=== PATIENT | male | born 1945 | race Caucasian/White ===

== ENCOUNTER 2024-12-19 08:39 | Outpatient (CLI) | payer MEDICARE, SELFPAY ==
--- NOTE | ~2024-12-19 | CT_ITS ---
EXAMINATION: CT LE LT wo con DATE: 12/19/2024 09:06 INDICATION: Left calf muscle strain with one month of pain and swelling TECHNIQUE: High resolution computed tomography (CT) of the left lower leg was performed without intra venous contrast. Additional sagittal and coronal reconstructions were performed. Automated exposure c ontrol and iterative reconstruction technique were employed. The dose-length product was 864.84 mGy-c m. COMPARISON: None FINDINGS: Heterogeneous attenuation of a lenticular lesion most likely an intramuscular hematoma related to mus nathan strain along the aponeurosis along the deep margin of the medial head of the gastrocnemius muscle which measures 8.5 cm craniocaudally and 3.5 x 2.1 cm maximal transaxial dimensions. 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 Tiny central subchondral osteophytes along the ante rior weightbearing medial lateral femoral condyle consistent with overlying high-grade chondromalacia . There are extensive vascular calcifications along the arteries of the right lower leg. IMPRESSION: 1. 8.5 x 3.5 x 2.1 cm intramuscular hematoma along the aponeurosis at the deep margin of the medial h ead of the gastrocnemius muscle likely related to associated moderate grade muscle strain/partial tea r. Reviewed, dictated and finalized at location A. IMPRESSION: 1. 8.5 x 3.5 x 2.1 cm intramuscular hematoma along the aponeurosis at the deep margin of the medial head of the gastrocnemius muscle likely related to associa kostas moderate grade muscle strain/partial tear.
--- OUTSIDE RECORDS SUMMARY | 2024-12-19 09:06 | XMS_ITS | Continuity of Care Document ---
Author Organization [facility] [facility] [place] [address] [facility] [address] [place] [address] Phone Care Team Providers Care Juice Tester Name Role Phone Elias Morales MD, FACS Unavailable Unavailab le Allergies, Adverse Reactions, Alerts Substance Reaction Status Criticality No Known Allergies Active No Inform ation Medications Medication Instructions Dosage Effective Dates (start - stop) Status Comments dorzolamide 22.3 mg-timolol 6.8 mg/mL eye drops instill 1 drop by ophthalmic route 2 times every day into both eye(s) - Active fluorometholone 0.1 % eye drops,suspension instill 1 drop by ophthalmic route every day into both eyes 1 drop - Active metformin ER 500 mg tablet,extended release 24 hr take 1 tablet (500MG) by ORAL route every day with evening meal with the evening meal 500 MG - Active Fish Oil 1,000 mg (120 mg-180 mg) capsule take 1 by oral route every day 1 - Active vitamin B12 1,000 mcg-folic acid 400 mcg sublingual lozenge - Active Vitamin C 100 mg tablet take 1 by oral route every day 1 - Active atorvastatin 20 mg tablet take 1 tablet by oral route every day 20 MG - Active omeprazole 40 mg capsule,delayed release take 1 capsule by oral route every day before a meal 40 MG - Active Toprol XL 100 mg tablet,extended release take 1 tablet by oral route every day 100 MG - Active Lantus U-100 Insulin 100 unit/mL subcutaneous solution inject by subcutaneous route as per insulin protocol 0.00 - Active Entresto 49 mg-51 mg tablet take 1 tablet by oral route 2 times every day 1.00 tablet - Active Eliquis 5 mg tablet take 1 tablet by oral route 2 times every day 5 MG - Active hydrochlorothiazide 25 mg tablet take 1 tablet by oral route every day 25 MG - Active gabapentin 100 mg capsule take 3 capsule by oral route every day at bedtime 300 MG - Active tamsulosin 0.4 mg capsule take one table t daily - Active Klor-Con 10 mEq tablet,extended release take 2 tablet by oral route 2 times every day with food 20 MEQ - Active Procedures Procedure Date SCODI, Posterior Segment Visual Field Examination(s) Eye Exam & Treatment Corneal Topography Fundus Photography W/ Report Office/outpatient Visit, Est Contact Lens Check Office/outpatient Visit, Est Contact Lens Check Contact Lens Check Talita Dropper Creve Couer Talita Dropper Creve Couer Talita Dropper Creve Couer Post-op Follow-up Visit Post-op Follow-up Visit Injection Treatment Of Eye Post-op Follow-up Visit Drainage Of Eye Post-op Follow-up Visit Keratoplasty(Corneal Trans)Endothelial J Corneal Topography Corneal Pachymetry Office/outpatient Visit, Est SCODI, Posterior Segment No Charge Refraction No Charge Optomap Fundus Photos 023 Corneal Pachymetry No Charge GDX Retina Eye Exam & Treatment Visual Field Examination(s) Fundus Photography W/ Report Office/outpatient Visit, Est SCODI, Anterior Segment No Charge Contact Lens Check Contact Lens Check Contact Lens Check SCODI, Anterior Segment No Charge SCODI, Anterior Segment No Charge SCODI, Anterior Segment No Charge Contact Lens Fitting, Medical Superv Feb Contact Lens, Scleral, Gas Permeable Feb Eye Exam & Treatment SCODI, Posterior Segment Fundus Photography W/ Report Visual Field Examination(s) Office/outpatient Visit, Est SCODI, Posterior Segment No Charge Optomap Fundus Photos 021 Eye Exam & Treatment Visual Field Examination(s) Fundus Photography W/ Report Office/outpatient Visit, Est SCODI, Posterior Segment Eye Exam & Treatment Visual Field Examination(s) Office/outpatient Visit, Est No Charge Optomap Fundus Photos 020 SCODI, Posterior Segment Eye Exam & Treatment Office/outpatient Visit, Est Visual Field Examination(s) Fundus Photography W/ Report Office/outpatient Visit, Est SCODI, Posterior Segment Eye Exam & Treatment Visual Field Examination(s) Office/outpatient Visit, Est SCODI, Posterior Segment Eye Exam & Treatment Eye Exam & Treatment Optic Nerve Head Eval IPO Reduced 15% Dilated Retinal Exam W Interpretation No Evidence Of Retinopathy In Prior Year Office/outpatient Visit, Est Fundus Photography W/ Report Office/outpatient Visit, Est Fundus Photography W/ Report Optic Nerve Head Eval IOP Red Less Than 15% W Plan Of Care Jan Dilated Retinal Exam W Interpretation Ju No Evidence Of Retinopathy In Prior Year Office/outpatient Visit, Est Fundus Photography W/ Report Optic Nerve Head Eval IOP Red Less Than 15% W Plan Of Care Jul IOP Red Less That 15% W Plan Of Care Jul Dilated Retinal Exam W Interpretation Angus No Evidence Of Retinopathy In Prior Year Eye Exam & Treatment Fundus Photography W/ Report Optic Nerve Head Eval IPO Reduced 15% Office/outpatient Visit, Est Office/outpatient Visit, Est Optic Nerve Head Eval IPO Reduced 15% Office/outpatient Visit, Est Certified EMR Contact Lens Check Contact Lens, Gas Permeable, Spherical, Per Lens Miscellaneous Vision Service - Supplies Contact Lens Check Contact Lens Fitt, Med Superv, Level 6 A pr--2011 Office/outpatient Visit, Est Post-op Follow-up Visit Office/outpatient Visit, Est After Cataract Laser Surgery Certified EMR Eye Exam & Treatment Optic Nerve Head Eval IPO Reduced 15% Dilated Retinal Exam W Interpretation No Evidence Of Retinopathy In Prior Year Post-op Follow-up Visit After Cataract Laser Surgery Eye Exam & Treatment Optic Nerve Head Eval IPO Reduced 15% Dilated Retinal Exam W Interpretation Ju No Evidence Of Retinopathy In Prior Year Optic Nerve Topography Optic Nerve Topography Eye Exam & Treatment Advance Directives Directive Yes / No Effective Date File Name Other Directive No N/A N/A WARNING:The information contained in this section is historical and is provided for information only and does not constitute a legal document or any assurance that the information is still accurate. Please verify the information with the hammond of the legal document before using it for clinical purposes. Encounters Encounter Description Practice Location Reason(s) For Visit Diagnoses Date Provider Providers Copied on Encounter [facility], [id number], [place], [place], [address], tel:[phone] SEC [place] Professional 6 month Cornea and Glaucoma followup (chief complaint) Corneal transplant statusPresenc e of intraocular lensPrimary open-angle glaucoma, bilateral, moderate stage 5 Andrew Griffin. [facility] [address], [address], [place], [place], [address], [place]. tel:[phone] Referring Provider: Elias Remy, [id number], [place], [address]. tel:[phone] Office/outpa tient Visit, Est [facility], [address], [place], [place], [address], tel:[phone] SEC [place] JAMIN Professional 6 month dilated exam (chief complaint) Corneal transplant statusPresenc e of intraocular lens 4 Andrew Griffin. [facility] [address], [address], [place], [place], [address], [place]. tel:[phone] Referring Provider: Elias Remy, [id number], [place], [address]. tel:[phone] [facility], [email or web address], [place], [place], [address], tel:[phone] SEC [place] JAMIN Professional contact lens check (chief complaint) Corneal transplant status 4 Rika Archer. [facility] [address], [address], [place], [place], [address], [place]. tel:[phone] Referring Provider: Elias Remy, [id number], [place], [address]. tel:[phone] Office/outpa tient Visit, Est [facility], [address], [place], [place], [address], tel: SEC [place] Professional glaucoma, pressure check (chief complaint) Corneal transplant statusPrimary open-angle glaucoma, bilateral, moderate stage Nov-0 7-202 3 Andrew Griffin. [facility] [address], [address], [place], [place], [address], [place]. tel:[phone] Referring Provider: Elias Remy, [facility] [address], [place], [address]. tel:[phone] [facility], [facility] [employer] [address], [place], [place], [address], tel:[phone] SEC [place] Professional CL Check (chief complaint) Corneal transplant status Oct-0 4202 3 Rika OD Suzi. [facility] [address], [address], [place], [place], [address], [place]. tel:[phone] Referring Provider: Elias Remy, [facility] [address], [place], [address]. tel:[phone] [facility], [address], [place], [place], [address], [place] tel: [place] Professional CL Check (chief complaint) Corneal transplant status Sep-0 6-202 3 Rika OD Suzi. [facility] [address], [address], [place], [place], [address], [place]. tel:[phone] Referring Provider: Elias Remy, [facility] [address], [place], [address]. tel:[phone] [employer] [facility], [facility] [employer] [address], [place], [place], [address], [place] tel: SEC [place] 2 week post op (chief complaint) Post op visit 3 Andrew Griffin. [address], [address], [place], [place], [address], [place]. tel:[phone] Referring Provider: Elias Remy, [id number], [place], [address]. tel:[phone] [employer], [email or web address], [place], [place], [address], tel: SEC [place] 2 day followup (chief complaint) Post op visit 3 Andrew Griffin. [id number], [place], [place], [address], [place]. tel:[phone] Referring Provider: Elias Remy, [id number], [place], [address]. tel:[phone] [employer], [email or web address], [place], [place], [address], [place] tel:[phone] [place] 1 wk DSAEK po (chief complaint) Post op visitCorneal transplant status 3 Andrew Griffin. [id number], [place], [place], [address], [place]. tel:[phone] Referring Provider: Elias Remy, [id number], [place], [address]. tel:[phone] [employer], [email or web address], [place], [place], [address], [place] tel:[phone] [place] 1 day postop (chief complaint) Post op visit 3 Andrew Griffin. [employer], [address], [place], [place], [address], [place]. tel:[phone] Referring Provider: Elias Remy, [address] [place] [address] [employer] [address], [place], [address]. tel:[phone] [facility], [address] [place] [address] [address], [place], [place], [address], [place] tel:[phone] [facility] [place] No Information Adithya- 3 Andrew Griffin. [address] [place] [address] [employer], [address], [place], [place], [address], [place]. tel:[phone] Referring Provider: Elias Remy, [address] [place] [address] [employer] [address], [place], [address]. 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 [address] [place] [address] [employer], [address], [place], [place], [address], [place]. tel:[phone] Referring Provider: Elias Remy, [address] [place] [address] [employer] [address], [place], [address]. tel:[phone] [facility], [address] [place] [address] [address], [place], [place], [address], [place] tel:[phone] [place] Professional Hazy vision (chief complaint) Primary open-angle glaucoma, bilateral, moderate stageType 2 diabetes mellitus without complications Corneal transplant status Oct- 3 Spencer Ferro. [address] [facility], [address], [place], [place], [address], [place]. tel:[phone] Referring Provider: Elias Remy, [address] [place] [address] [employer] [address], [place], [address]. tel:[phone] Office/outpa tient Visit, [facility], [email or web address], [place], [place], [address], [place] tel:[phone] SEC [place] Professional glaucoma, pressure check (chief complaint) Corneal transplant statusPresenc e of intraocular lensPrimary open-angle glaucoma, bilateral, moderate stage 3 Spencer Ferro. [address] [facility], [address], [place], [place], [address], [place]. tel:[phone] Referring Provider: Elias Remy, [id number], [place], [address]. tel:[phone] [employer] [facility], [email or web address], [place], [place], [address], tel:[phone] SEC [place] JAMIN Professional Contact lens check (chief complaint) Corneal transplant status 3 Rika OD Suzi. [facility] [employer], [address], [place], [place], [address], [place]. tel:[phone] Referring Provider: Elias Remy, [id number], [place], [address]. tel:[phone] [employer] [facility], [facility] [address], [place], [place], [address], [place] tel:[phone] [place] Contact lens check (chief complaint) Corneal transplant status 2 Rika OD Suzi. [facility] [address], [address], [place], [place], [address], [place]. tel:[phone] Referring Provider: Elias Remy, [id number], [place], [address]. tel:[phone] [employer] [facility], [email or web address], [place], [place], [address], [place] tel:[phone] SEC [place] JAMIN Professional No Information 2 Rika OD Suzi. [address] [place] [place] [address], [address], [place], [place], [address], [place]. tel:[phone] Referring Provider: Elias Remy, [address] [place] [address] [address], [place], [address]. tel:[phone] [facility], [address] [place] [address] [address], [place], [place], [address], [place] tel:[phone] SEC [place] 3 week CL's check (chief complaint) Corneal transplant status 2 Cherelle Khoury. [address] [place], [address], [place]. tel:[phone] Referring Provider: Elias Remy, [address] [place] [address] [address], [place], [address]. tel:[phone] [facility], [address] [place] [address] [address], [place], [place], [address], [place] tel:[phone] SEC [place] Scleral contact lens fitting (chief complaint) Corneal transplant status 2 Cherelle Khoury. [address] [facility], [place], [address], [place]. tel:[phone] Referring Provider: Elias Remy, [address] [place] [address] [address], [place], [address]. tel:[phone] [facility], [address] [place] [address] [address], [place], [place], [address], [place] tel:[phone] SEC [place] No Information 2 [employer]. [address] [facility], [address], [place], [place], [address], [place]. tel:[phone] Referring Provider: Peng Jj, [address] [place], [address]. tel:[phone] lting Provider: Julio Ruiz, [address], [place], [address]. [phone] [facility], [email or web address], [place], [place], [address], tel: SEC [place] Professional diabetic eye exam (chief complaint) Presence of intraocular lensPrimary open-angle glaucoma, bilateral, moderate stageCorneal transplant statusType 2 diabetes mellitus without complications 2 Spencer Ferro. [address], [address], [place], [place], [address], [place]. tel:[phone] Referring Provider: Elias Remy, [id number], [place], [address]. tel: Office/outpa tient Visit, Est [facility], [email or web address], [place], [place], [address], [place] tel: SEC [place] Professional glaucoma, pressure check (chief complaint) Primary open-angle glaucoma, bilateral, moderate stageCorneal transplant status 2 Spencer Ferro. [address], [address], [place], [place], [address], [place]. tel: Referring Provider: Elias Remy, [id number], [place], [address]. tel: [facility], [email or web address], [place], [place], [address], [place] tel: SEC [place] Professional diabetic eye exam (chief complaint) Primary open-angle glaucoma, bilateral, moderate stageType 2 diabetes mellitus without complications Corneal transplant status 1 Spencer Ferro. [address], [address], [place], [place], [address], [place]. tel:[phone] Referring Provider: Elias Remy, [id number], [place], [address]. tel:[phone] Office/outpa tient Visit, Est [facility], [address] [place] [address] [address], [place], [place], [address], [place] tel:[phone] SEC [place] Professional glaucoma, pressure check (chief complaint) Primary open-angle glaucoma, bilateral, moderate stageCorneal transplant status 1 Spencer eFrro. [address] [facility], [address], [place], [place], [address], [place]. tel:[phone] Referring Provider: Elias Remy, [facility] [address], [place], [address]. tel:[phone] [facility], [facility] [place] [address], [place], [place], [address], [place] tel:[phone] SEC [place] Professional 6 mo Complete exam (chief complaint) Primary open-angle glaucoma, bilateral, moderate stagePresence of intraocular lensCorneal transplant statusType 2 diabetes mellitus without complications 0 Sallie Acevedo. [address] [place] [address], [address] [place] [address], [place], [address], [place]. [phone] Referring Provider: Elias Remy, [id number], [place], [address]. tel:[phone] [facility], [facility] [place] [address], [place], [place], [address], [place] tel:[phone] SEC [place] Professional No Information 0 Sallie Acevedo. [address] [place] [address], [address] [place] [address], [place], [address], [place]. [phone] Office/outpa tient Visit, Est [facility], [facility] [employer] [address], [place], [place], [address], [place] tel:[phone] SEC [place] Professional 6 mo IOP/Cornea /Scleral CL check (chief complaint) Primary open-angle glaucoma, bilateral, moderate stageCorneal transplant status 0 Sallie Acevedo. [address] [facility], [address], [place], [address], [place]. [phone] Referring Provider: Elias Remy, [facility] [address], [place], [address]. tel:[phone] [facility], [facility] [employer] [address], [place], [place], [address], [place] tel:[phone] SEC [place] Professional diabetic eye exam (chief complaint) Primary open-angle glaucoma, bilateral, moderate stageCorneal transplant statusType 2 diabetes mellitus without complications Presence of intraocular lens 9 Spencer Ferro. [address], [address], [place], [place], [address], [place]. tel:[phone] Referring Provider: Elias Remy, [facility] [address], [place], [address]. tel:[phone] Office/outpa tient Visit, [facility], [facility] [employer] [address], [place], [place], [address], [place] tel:[phone] SEC [place] Professional glaucoma, pressure check (chief complaint) Primary open-angle glaucoma, bilateral, moderate stageCorneal transplant statusBalance problem 9 Spencer Ferro. [address], [address], [place], [place], [address], [place]. tel:[phone] Referring Provider: Elias Remy, [id number], [place], [address]. tel:[phone] Office/outpa tient Visit, [facility], [facility] [employer] [address], [place], [place], [address], [place] tel:[phone] [place] Professional glaucoma, pressure check (chief complaint) No Information 0 8 Spencer Ferro. [address], [address], [place], [place], [address], [place]. tel: Referring Provider: Elias Remy, [facility] [address], [place], [address]. tel: [facility], [facility] [employer] [address], [place], [place], [address], [place] tel: SAR[place]EV[place] Professional 10 month Complete (chief complaint) No Information 8 Spencer Ferro. [address], [address], [place], [place], [address], [place]. tel: Referring Provider: Elias Remy, [facility] [address], [place], [address]. tel: Office/outpa tient Visit, [facility], [facility] [employer] [address], [place], [place], [address], [place] tel: SAR[place] Professional glaucoma, pressure check (chief complaint) No Information 7 Wankum Miguel A. [address], [address], [place], [place], [address], [place]. tel: Referring Provider: Elias Remy, [facility] [address], [place], [address]. tel: [employer] [facility], [facility] [employer] [address], [place], [place], [address], [place] tel: SARAY [place] Professional diabetic eye exam (chief complaint) No Information 7 Wankum Miguel A. [address], [address], [place], [place], [address], [place]. tel: Referring Provider: Elias Remy, [address], [place], [address]. tel: [facility] CampusCode[facility], [facility] [employer] [address], [place], [place], [address], [place] tel: [place] Professional Blurry vision (chief complaint) No Information 0 5 Pioestela Grady. [address] [facility], [address], [place], [place], [address], [place]. tel: Referring Provider: Elias Remy, [facility] [address], [place], [address]. tel: Office/outpa tient Visit, [facility], [facility] [employer] [address], [place], [address], [place] tel: SEC [place] Professional 6 MO IOP CHECK (chief complaint) No Information 5 Andrew Griffin. [facility] [address], [address], [place], [place], [address], [place]. tel: Referring Provider: Elias Remy, [facility] [address], [place], [address]. tel: Office/outpa tient Visit, [facility], [facility] [employer] [address], [place], [place], [address], [place] tel: [place] Dryness (chief complaint) No Information 8 4 Andrew Griffin. [facility] [address], [address], [place], [place], [address], [place]. tel: Referring Provider: Elias Remy, [facility] [address], [place], [address]. tel: Office/outpa tient Visit, [facility] CenterCity[facility], [facility] [place] [address], [place], [address], [place] tel: SEC [place] JAMIN Professional No Information 4 Andrew Elias. [address], [address], [place], [place], [address], [place]. tel: Referring Provider: Elias Remy, [facility] [address], [place], [address]. tel: [facility], [address] [place] [address] [address], [place], [place], [id number], [place] tel: SEC [place] JAMIN Professional No Information 3 Andrew Elias. [facility] [address], [address], [place], [place], [address], [place]. tel: Referring Provider: Elias Remy, [facility] [address], [place], [address]. tel: Office/outpa tient Visit, Est [facility], [address] [place], [place] [address] [address], [place], [place], [address], [place] tel: SEC [place] Professional No Information 3 Wankum Miguel A. [address] [facility], [address], [place], [place], [id number], [place]. tel: Referring Provider: Elias Remy, [facility] [address], [place], [address]. tel: Office/outpa tient Visit, Est [facility], [address] [place], [place] [address], [place], [place], [address], [place] tel: [place] Professional No Information 3 Wankum Miguel A. [address] [facility], [address], [place], [place], [address], [place]. tel: Referring Provider: Elias Remy, [address], [place], [address]. tel:[phone] Office/outpa tient Visit, Est [facility], [address], [place], [place], [id number], [place] tel: SEC [place] Ma No Information 2 Deny Grady. [address] [facility], [address], [place], [place], [address], [place]. tel:2 Referring Provider: Elias Remy, [facility] [address], [place], [address]. tel: [facility], [address] [place] [address] [address], [place], [place], [address], [place] tel: SEC Natali Perez No Information 2 Cb Ureña. [address] [facility], [address], [place], [place], [address], [place]. tel:7 Referring Provider: Elias Remy, [facility] [address], [place], [address]. tel: [facility], [address], [place], [place], [address], [place] tel: SEC Natali Perez No Information 2 [employer] [facility]. [address] [facility], [address], [place], [place], [address], [place]. tel:0 Referring Provider: Niranjan James, [address] [facility] [address], [place], [address]. tel:7 [facility], [address], [place], [place], [address], [place] tel: SEC Natali Perez No Information 2 [employer] [facility]. [address] [facility], [address], [place], [place], [address], [place]. tel: [facility], [address] [place] [address] [address], [place], [place], [address], [place] tel: SEC Natali Perez No Information 2 Vivar Niranjan. [address] [facility], [address], [place], [place], [address], [place]. tel: Referring Provider: Elias Remy, [facility] [address] [facility] [address], [place], [address]. tel: [facility], [address] [place] [address] [address], [place], [place], [address], [place] tel: SEC Natali Perez No Information 2 Vivar Niranjan. [address] [facility], [address], [place], [place], [address], [place]. tel: Referring Provider: Elias Remy, [facility] [address] [facility] [address], [place], [address]. tel: Office/outpa tient Visit, Est [facility], [address] [place] [address] [address], [place], [place], [address], [place] tel: [place] Professional No Information 2 Deny Grady. [address], [address], [place], [place], [address], [place]. tel: Referring Provider: Elias Remy, [facility] [address], [place], [address]. tel: [facility], [address] [place] [address] [address], [place], [place], [address], [place] tel: [place] Professional No Information Nov-0 8-201 1 Wankum Miguel A. [address], [address], [place], [place], [address], [place]. tel:2 Referring Provider: Elias Remy, [address], [place], [address]. tel: [facility], [facility], [address], [place], [place], [address], [place] tel:6 SEC [place] Professional No Information Oct-1 1-201 1 Andrew Elias. [address], [address], [place], [place], [address], [place]. tel:5 Referring Provider: Elias Remy, [facility] [address], [place], [address]. tel: [facility], [address], [place], [place], [address], [place] tel: SEC [place] [employer] [place] Professional No Information Sep-2 6-201 1 Wankum Miguel A. [address], [address] [place], [place], [address], [place]. tel: [facility], [address], [place], [place], [address], [place] tel: SEC [place] [employer] [place] Professional No Information Valeriy-0 9-200 9 Wankum Miguel A. [address], [address], [place], [place], [address], [place]. tel: [facility], [address], [place], [place], [address], [place] tel: SEC [place] [employer] [place] Professional No Information Adithya-0 9-200 9 Wankum Miguel A. [address], [address] [place], [place], [address], . [phone] Referring Provider: Miguel A Barclay Jonel, [address] [facility] [place], [address]. tel:[phone] [facility], [address] [facility] [address], [place], [place], [address], tel:0 [place] Professional No Information 9 Deny Grady. [address] [facility], [address], [place], [place], [address], . tel:[phone] [facility], [address], [place], [place], [address], tel:3 SEC [place] Professional No Information 8 Christiano Mesa. [address] [facility], [facility] [place], [facility], . tel:[phone] Referring Provider: Bonita Mills, [address] [facility] [address], [place], [facility]. tel:[phone] [facility], [address] [facility] [address], [place], [place], [address], tel:[phone] [place] Professional No Information 7 Christiano Mesa. [address] [facility], [facility] [place], [facility], . [phone] Family History Family Member Type Diagnosis Age At Onset Mother Problem (finding) Diabetes mellitus Payers Payer name Insurance type Covered constitution party ID Authorzaida alla(s) [employer] Mdcr Gold Adv Prime CI [id number] Social History Type Description Quantity Date Captured Comments Alcohol Use Details Caffeine Use Details coffee Tobacco Use Status Ex-cigarette smoker 025 Smoking Status Former smoker Smoking Tobacco Use Details Cigarette: Age Started: 6, Age Stopped: 47, Years Used 39 Cigarette: 1 Packs per day, Pack Year: 41 Sex Male Chief Complaint And Reason For Visit From encounter dated '07/26/2024 14:30'. 6 month Cornea and Glaucoma followup (chief complaint). Description: The 79 year old patient presents for evaluation of 6 month Cornea and Glaucoma followup in the right eye and left eye. Pt states his vision seems stable ou the past 6 months. Pt. states good at compliance with his glaucoma drops. Pt unsure if needs refills. Pt states his contacts are 1-2 years old. Reason For Referral Reason For Referral No Information Plan Of Treatment Date Type Action Status Goal Tobacco cessation counseling completed Goal Tobacco cessation counseling completed Goal Tobacco cessation counseling completed Goal Tobacco cessation counseling completed Goal Tobacco cessation counseling completed Goal Tobacco cessation counseling completed Goal Tobacco cessation counseling completed Appointment Valentino Rosario BOOKED Patient Education Corneal Transp lant (Partial Thickness): Before Your Surgery completed Patient Education Open-Angle Glaucoma: Ca re Instructions completed Patient Education Open-Angle Glaucoma: Ca re Instructions completed Patient Education Diabetic Neuropathy: Ca re Instructions completed Patient Education Open-Angle Glaucoma: Ca re Instructions completed Patient Education Open-Angle Glaucoma: Ca re Instructions completed Patient Education Open-Angle Glaucoma: Ca re Instructions completed Patient Education Open-Angle Glaucoma: Ca re Instructions completed Patient Education Open-Angle Glaucoma: Ca re Instructions completed Patient Education Open-Angle Glaucoma: Ca re Instructions completed Patient Education Open-Angle Glaucoma: Ca re Instructions completed History Of Present Illness Encounter Date Complaint History Of Prese nt Illness 6 month Cornea and G laucoma followup The 79 year old patient presents for evaluation of 6 month Cornea and Glaucoma followup in the right eye and left eye. Pt states his vision seems stable ou the past 6 months. Pt. states good at compliance with his glaucoma drops. Pt unsure if needs refills. Pt states his contacts are 1-2 years old. 6 month dilated exam The 78 year old patient presents for evaluation of 6 month dilated exam in the right eye and left eye. Pt. has h/o POAG and s/p DSAEK ou. 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 Pt's last HA1C was 5.8. Pt. states his vision is stable in ou the past 6 months. Pt. states no ocular discomfort. Pt unsure if he needs any refills on his eyedrops. Pt. is good at compliance with eyedrops. contact lens check The 78 year o ld patient presents for a 6 month scleral lens check. Patient states he is doing good with his contacts. Patient uses FML qd ou and Dorzolamide/Timolol bid ou. glaucoma, pressure check The 78 year old patient presents for a 3 month POAG ou IOP check. Patient is using Dorzolamide/Timolol bid ou. Patient has DSAEK OD (12/30/22) and is using Pred qd OD and has Triple DSAEK OS and is using FML qd OS. Patient states his eyes are pretty good. CL Check The 77 year old patient presents for evaluation of CL Check in the right eye and left eye. Pt states CL feels fine in OU and pt says he can see pretty well. Pt is taking Timolol-Dorzolamide OU BID. Pt is taking Floro QHS OS and Prednisolone OD QHS. CL Check The 77 year old patient presents for evaluation of CL Check in the right eye and left eye. Pt has the OS CL in and says it feels fine with no pain or discomfort. Pt is taking Pred 1x day OD, Dorzolamide BID OU, Fluor. 1x day OS. Pt waited 30 min after putting in CL in OD and pt says CL feels fine with no pain or discomfort. 2 week post op The 77 year old patient presents for evaluation of 2 week post op in the right eye. Hx of DSAEK OD 20. Pt stated OD is doing great with no complaints today. Pt uses Dorz/Jesusita OU bid, FML OS qd, Ketorolac OD tid, Polytrim OD qid, and Pred OD qid. 2 day followup The 77 year old patient presents for evaluation of 2 day followup in the right eye. Pt. had DSAEK OD 12/30/2022. Pt. had rebubble OD 12/31/2022. Pt. is using FML OS qd, Dorz/Jesusita OU bid, Poly OD qid, Pred OD qid, and Ket OD tid. Pt. states no pain in OD. 1 wk DSAEK po The 77 year old patient presents for evaluation of 1 wk DSAEK po in the right eye. Pt using Poly qid, PF1% qid, and Ketorolac tid, and Trusopt ou bid, Dorz/jesusita ou bid, and FML OS qd. Pt states is has no more pain and things seem stable. 1 day postop The 77 year old patient presents for evaluation of 1 day postop in the right eye. Pt. had DSAEK OD . Pt. to start using Pred qid, Poly qid, and Ketorolac tid. Reviewed postop instructions with patient. Pt. is still using Trusopt ou bid, Dorz/jesusita ou bid, and FML OS qd. Pt. had a lot of pain overnight. Pt. states he was up and down and trouble sleeping due to pressure and had to blow nose. Graft check The 77 year old patient presents for evaluation of possible regraft OD DSAEK. Patient has Triple PK ou. Patient c/o hazy vision OD. Patient uses Mike od, Timolol bid ou, Truspot bid ou and FML qd ou. Patient wears Scleral lenses ou but is not wearing the right one today. Hazy vision The 77 year old patient presents for evaluation of Hazy vision in the right eye. Pt reports he has hazy VA, OD, can't see, has been happening for a several months but worse the last 2-3 mos. Pt reports he puts Mike in several times, it clears it up some, but only for a little while. Pt reports he is using Timolol BID OU, Trusopt BID OU, FML OU, and Mike 128 TID-QID OD only. glaucoma, pressure check The 77 year old patient presents for a 4 month POAG ou IOP check. Patient is using Timolol bid ou and Trusopt bid ou. Patient has DSAEK ou and uses FML qd ou. Patient wears Scleral lenses ou. Patient is using Mike 128 OD bid. Contact lens check The 77 year o ld patient presents for evaluation of Contact lens check in the right eye and left eye. Patient states the right eye is Fuzzy with the CL's. Patient states when he first puts the CL's in it seems ok but after having it in for a little bit the VA becomes blurry. Contact lens check The 77 year o ld patient presents for evaluation of Contact lens check in the right eye and left eye. Pt reports OD is kind of blurry, gets worse as the day goes on, OS vision is good. Pt states comfort is good. Wearing since 7:30 am. SynergEyesOD 8.4 +2.75 16.0 38/44 3400OS 8.4 +1.75 16.0 38/42 3200 3 week CL's check The 76 year ol d patient presents for evaluation of 3 week CL's check in the right eye and left eye. Patient states he is still having cloudy VA. Patient states after he has had CL's in at the end of the day VA is cloudy OD>OS; same issue happened with old lenses and seems to be better with this pair. Patient states he has to wear reading glasses over his CL's. Patient put CL's in today @ 9am. Scleral contact lens fitting The 76 year old patient presents for evaluation of Scleral contact lens fitting in the right eye and left eye. Hx of Triple DSAEK OU, YAG PC OU and POAG OU. Pt reports he has had his current lenses over 10 years and they are scratched. Pt states vision and comfort is good. Pt wears more than 12 hours a day. Pt uses Dorzolamide BID OU, Timolol BID OU and FML QD OU. diabetic eye exam The 76 year ol d patient presents for a complete Type II diabetic exam ou and POAG ou IOP check. Patient is using Timolol bid ou and Dorzolamide bid ou. Patient has Triple DSAEK ou and uses FML qd ou. Patient wears Scleral lenses. Patient had neck sx in January. BS was 124 this am and PCP treats DM. glaucoma, pressure check The 76 year old male presents for a 6 month POAG ou IOP check. Patient is using Timolol bid ou and Dorzolamide bid ou. Patient has Triple DSAEK ou and uses FML qd ou. Patient is a Type II diabetic. Patient is pseudo ou with yag caps ou. Patient wears scleral lenses ou. diabetic eye exam The 75 year ol d male presents for a complete Type II diabetic exam ou and POAG ou IOP check. Patient has PK ou and wears Scleral lenses ou. Patient is using FML qd ou , Timolol bid ou and Dorzolamide bid ou. Patient hasn't checked BS in awhile. Patient had a pacemaker in August. Patient states sometimes his vision seems hazy. glaucoma, pressure check The 75 year old male presents for a 6 month POAG ou IOP check. Patient has hx of PK ou. Patient is using FML qd ou, Timolol bid ou and Dorzolamide bid ou. Patient is a Type II diabetic and last A1C was 6.8 awhile back and BS runs about 160. Patient denies any changes in vision ou. Patient wears Scleral lenses ou. 6 mo Complete exam The 74 year o ld male presents for evaluation of 6 mo Complete exam with OTC- ON in the right eye and left eye. Hx of Triple DSAEK OU, Scleral CLS, and POAG OU. Pt is IDDM II x 25 yrs, followed by PCP, pt reports he last checked his BS a couple wks ago and A1C was 6. something in Jul/Aug. Pt reports he uses FML QD OU, Timolol BID OU, and Dorzolamide BID OU. Pt reports he last used the Dorzolamide and Timolol at 7 am today and refills sent for Dorzolamide per pt request. Pt reports he hasn't noticed any changes in VA, OU, since last appt. 6 mo IOP/Cornea/Scleral CL check The 74 year old male presents for evaluation of 6 mo IOP/Cornea/Scleral CL check with VF 24-2 and Optomap in the right eye and left eye. Pt reports he uses FML QD OU, Timolol BID OU, and Dorzolamide BID OU. Pt reports he last used the Timolol and Dorzolamide at 7:30 am today and he doesn't need refills at this time. Pt denies any changes in VA, OU, since last appt. diabetic eye exam The 73 year ol d male presents for a complete Type II diabetic eye exam ou and a POAG IOP check. Patient uses FML qd ou, Timolol bid ou and Dorzolamide bid ou. Last A1C 2 days ago was 6.8. Patient wears Scleral lenses. Patient denies any changes in vision ou. Patient has Triple ou. glaucoma, pressure check The 73 year old male presents for a 1 month IOP check. Patient is using Dorzolamide bid ou and Timolol bid ou. Patient is using FML ou. Patient is having some balance issues. glaucoma, pressure check The 73 year old male presents for a 6 month POAG ou IOP check and PK ou check. Patient wears RGP's ou. Patient uses PM qd ou and Dorzolamide qd ou. Patient states PM is expensive. Patient is pseudo ou with yag caps ou. Patient is a Type II diabetic and doesn't check BS. Last A1C was about 7. 10 month Complete The 72 year ol d male presents for evaluation of 10 month Complete for Diabetes and POAG in the right eye and left eye. Hx of PK OU, PCIOL OU, YAG PC OU, and POAG. Patient denies any problems or changes with eyes. Patient wears RGP's OU. Patient is a Type 2 diab x 20 years, Insulin dependant since 2011, doesn't check BS, and A1C was 8.0. Patient uses PM QD OU and Dorzolamide QD OU last used @ 11pm. glaucoma, pressure check The 71 year old male presents for a 3 month POAG ou IOP check with a VF. Patient has hx of PK OU. Patient uses PM qd ou and Dorzolamide qhs ou. Patient denies any changes in vision ou. Patient wears RGP ou. diabetic eye exam The 71 year ol d male presents for a complete Type II diabetic eye exam ou. Patient has hx of PK ou and Poag ou. Patient uses PM qd ou and Dorzolamide qhs ou. Patient hasn't checked BS in awhile but states it has been good. Patient states every now and then the RGPs are bothersome. Blurry vision The 69 year old male presents for complete exam. Patient Hx POAG, Type II diabetes, PK OU, and Phaco c PCIOL OD. Patient wears Scleral CTL's OU. Patient denies any v/a changes. Patient c/o scratchy eye the other day, he thinks something may have flown in it OS. Patients last A1C checked last month was 7. Patient denies any pain or discomfort at this time. Patient using Pred Mild QD OU and Dorzolamide QD OU. 6 MO IOP CHECK The 69 year old male presents for 6 MO IOP CHECK. Patient Hx POAG, Type II Diabetes, PK OU and IOL OU. Patient wears a Scleral Contact Lens OU. Patient uses Pred Mild QD OU and Dorzolamide QD OU. Patient reports no new visual changes. Last A1C was 6.4. Dryness The 68 year old male presents for Complete Exam. HX of Triple PK OU (1998, 2000), POAG, and DM. A1C 6.4. Pt wears Scleral CL OU. Pt occasionally has dryness and itching. Pt uses Pred Mild OU QD, Dorzolamide OU QD. Functional Status Date Functional Assessmen t No Information Instructions Date Instruction Additional Infor phyllis Impression/Plan Return in 6 months juan Morales M.D., FACS for Cornea check and Glaucoma Check. 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 Related to Corneal transplant status Impression/Plan Impression/Plan Impression/Plan Impression/Plan Impression/Plan Impression/Plan Impression/Plan Impression/Plan Educational material given Relat ed to Primary open-angle glaucoma, bilateral, moderate stage Impression/Plan Primary open-angle g laucoma, left eye, moderate stage - Educational material provided Related to Primary open-angle glaucoma, left eye, moderate stage Follow up - 6 months for IOP jose miguel ck Impression/Plan - In traocular pressure well controlled, tolerating medications. Will continue with same regimen. No change in visual newton OU. Dorzolamide QHS OU. PK OU looks good, continue PM QD OU. Instructed pt to return to clinic right away with any redness or loss of vision OU. Return to clinic in 6 months for IOP check or sooner with any problems. CORNEA TRANSPLANT ST ATUS - Educational material given Related to CORNEA TRANSPLANT STATUS Follow up - 3-4 kvng hs for IOP check with 24-2 visual newton Impression/Plan - Di scussed diagnosis in detail with patient. Contact lenses are scratched, recommend polishing or replacement. Transplants are good OU, no signs of rejection. Continue PM QD OU. Diabetes type II: no background retinopathy, no signs of neovascularization noted. Discussed ocular and systemic benefits of blood sugar control. DM letter sent to Dr Terry. IOP slightly elevated OS. will continue to monitor. No change in OCT ON. Continue Dorzolamide QHS OU. Return to clinic in 3-4 months for IOP check with 24-2 visual newton. PRIM OPEN ANGLE GLAU COMA - Educational material given Related to PRIM OPEN ANGLE GLAUCOMA - Return in 1 year w ginny Barclay M.D. for Complete Exam Related to See list of assessments above - Grafts look good, no signs of rejection. Intraocular pressure well controlled, tolerating medications. Will continue with same regimen. Diabetes no background retinopathy, no signs of neovascularization noted. Discussed ocular and systemic benefits of blood sugar control. Return in 1 year for complete diabetic exam or sooner with any problems. DM letter sent to Dr Terry. Related to See list of assessments above - 6 months complete exam Related to See list of assessments above - Intraocular pressu re well controlled, tolerating medications. Will continue with same regimen. Rec good blood sugar control. Continue same medications. Continue with current CTLs. Pt will contact us if refills are needed. Related to See list of assessments above - 6 months iop check Related to See list of assessments above - OU: Discussed diag nosis in detail with patient. No treatment is required at this time. Will continue to observe condition and or symptoms. Will continue to monitor IOP. Current therapy is best for patient. Call if VA worsens. Medication instillation reviewed and understood. Continue using current medication(s). Take medication(s) as written. Educational materials provided:about today's exam. Related to See list of assessments above - 6 months complete exam Related to See impression: general plan General plan -PRIM O PEN ANGLE GLAUCOMA -Moderate Stage Glaucoma -CORNEA TRANSPLANT STATUS -Diabetes Mellitus Type 2, Uncomplicated - OU: Discussed diagnosis in detail with patient. No treatment is required at this time. Will continue to observe condition and or symptoms. Call if VA worsens. Medication instillation reviewed and understood. Continue using current medication(s). Medication refill given today. Educational materials provided:about today's exam. Explained Blephamide availability and erx'd Pred Mild to [facility] rdLetter dictated to dr. Lara Related to See impression: general plan - Return in 6 months with Elias Morales M.D., FACS for graft and IOP check Related to See impression: general plan General plan -CORNEA TRANSPLANT STATUS -PRIM OPEN ANGLE GLAUCOMA -Moderate Stage Glaucoma - Discussed diagnosis in detail with patient. Will continue to observe condition and or symptoms. Will continue to monitor IOP. Call if VA worsens. Medication instillation reviewed and understood. Continue using current medication(s). Related to See impression: general plan toxic epithelialopat hy os-improved - BA bid before and after cl for next 4days then back to routine - needs full exam with Dr. Morales spk-toxic - Blephami de qid osother drops same - 2days kajal os - reassurance - prn - 6 months corneal check Related to CORNEA TRANSPLANT STATUS CORNEA TRANSPLANT ST ATUS, Scleral lenses OU Related to CORNEA TRANSPLANT STATUS CORNEA TRANSPLANT ST ATUS, good fit OU - return 2 weeks for CL check Related to CORNEA TRANSPLANT STATUS CORNEA TRANSPLANT ST ATUS, OU - established, stable - will continue to monitor - Discussed diagnosis in detail with patient. Medication instillation reviewed and understood. Continue using current medication(s). Will continue to observe condition and or symptoms. Related to CORNEA TRANSPLANT STATUS - 3-[address] Deny villalobos to Opacified Capsule Opacified Capsule, O S - vision affected - may improve with surgery - Yag PC OS discussed with pt proceed today.28@4.0 Related to Opacified Capsule Assessments Type Assessment Date assessment Corneal transplant status assessment Presence of intraocular lens Jul assessment Primary open-angle glaucoma, tobias ateral, moderate stage Patient Care Teams Name Effective Dates (start - stop) Status Members No Information
--- OUTSIDE RECORDS SUMMARY | 2024-12-19 09:06 | XMS_ITS | Clinical Summary ---
Author Organization [facility] Address [address] [place] [address] Phone Care Team Providers Care Hazardous Materials Driver Name Role Phone Ankur Candelaria Primary Care Provider Phuc Black MD Unavailable Andrew Kline MD Unavailable [phone] Allergies No known active allergies Medications metFORMIN (GLUCOPHAGE) 1000 MG Tablet 500 mg 2 times daily. Active potassium chloride (KLOR-CON) 20 MEQ Pack Take 10 mEq by mouth daily. Active omeprazole (PRILOSEC) 20 MG CAPSULE DELAYED RELEASE Take 40 mg by mouth daily. Active Loma-3 Fatty Acids (FISH OIL PO) Take 2 Tablets by mouth daily. 1000 mg Active Multiple Vitamins-Minera ls (MULTIVITAMIN PO) Take 1 Tab by mouth daily. Active Ascorbic Acid (VITAMIN C PO) Take 1 Tab by mouth daily. Active tamsulosin (FLOMAX) 0.4 MG Capsule Take 1 Cap by mouth daily. 90 Cap 3 7 Active albuterol (PROVENTIL HFA, VENTOLIN HFA) 108 (90 Base) MCG/ACT Aerosol Solution take 2 Puffs by inhalation every 6 hours as needed for Wheezing. 1 Inhaler 7 Active hydroCHLOROthia zide 25 MG Tablet Take 25 mg by mouth daily. Active gabapentin (NEURONTIN) 100 MG Capsule Take 200 mg by mouth in the morning and at bedtime. Active apixaban (ELIQUIS) 5 MG Tablet Take 5 mg by mouth 2 times daily. Active naloxone HCl (Narcan) 4 MG/0.1ML Liquid 1 [place] by Nasal route as needed (opioid overdose). administer for symptoms of overdose (severe sleepiness, breathing problems, not responsive). Call 911. May use additional dose to repeat 1 spray intranasally in 2-3 minutes if needed. 2 Each 3 Active metoprolol Succinate (TOPROL-XL) 100 MG TABLET SR 24 HR Take 100 mg by mouth daily. Active sacubitril-vals dakotah (Entresto) 49-51 MG Tablet Take 1 Tablet by mouth 2 times daily. Active timolol (TIMOPTIC) 0.25 % Solution Place 1 Drop in both eyes 2 times daily. Active Cyanocobalamin (VITAMIN B-12 PO) Take by mouth. Activ e atorvastatin (LIPITOR) 40 MG Tablet Take 1 Tablet by mouth every evening. 90 Tablet 1 5 Active insulin glargine (LANTUS) 100 UNIT/ML Solution 40 Units by Subcutaneous route nightly. 15 mL 5 Active semaglutide,0.2 5 or 0.5MG/DOS, (OZEMPIC) 2 MG/3ML Solution Pen-injector 0.25 mg by Subcutaneous route. 5 Active empagliflozin (Jardiance) 25 MG Tablet Take 25 mg by mouth daily. Active Active Problems Problem Noted Date Diagnosed Date Chronic systolic heart failure 09/03/2024 TIA (transient ischemic attack) 09/02/2024 Encounters Date Type Department Care Team Description 09/27/2024 2:15 PM CDT Office Visit [facility] - Neurology [facility] [address] [place] [address] Andrew Kline MD Diabetic polyneuropathy associated with type 2 diabetes mellitus (HCC) (Primary Dx); TIA (transient ischemic attack); Balance disorder; Memory loss Discharge Disposition: Discharged to home or Selfcare 09/27/2024 Travel from Last 3 Months Immunizations Immunization Administration Dates Next Due Influenza, Trivalent, Adjuvanted, PF 09/03/2024 Family History Medical History Relation Name Comments Lung Cancer Father Diabetes Mother Heart Disease Mother Hypertension Mother Relation Name Status Comments Father Mother Social History Tobacco Use Types Packs/Day Years Used Date Smoking Tobacco: Former Cigarettes 3 20 0 08/02/1962 - 08/02/1982 Smokeless Tobacco: Former Snuff Comments:ONLY FOR SHORT CHIDI OD OF TIME Alcohol Use Standard Drinks/Week Comments Yes 4 (1 standard drink = 0.6 oz pure alcohol) ONLY DRINK OCCASSIONALLY SOCIALLY [facility] Utilities Answer Date Recorded In the past 12 months has th e [employer], gas, oil, or water [place] threatened to shut off services in your home? No 09/02/2024 Social Connection and Isolation Panel Answer Date Recorded In a typical week, how many times do you talk on the phone with family, friends, or neighbors? More than three times a week 09/02/2024 Frequency of Social Gatherin gs with Friends and Family Not on file 09/02/2024 How often do you attend [facility] or congregation services? More than 4 times per year 09/02/2024 Do you belong to any clubs o r organizations such as congregational groups, unions, fraternal or athletic groups, or school groups? Yes 09/02/2024 How often do you attend meet ings of the clubs or organizations you belong to? More than 4 times per year 09/02/2024 Are you , , di vorced, , never , or living with a partner? 09/02/2024 AUDIT-C Answer Date Recorded Q1: How often do you have a drink containing alcohol? Monthly or less 09/02/2024 Q2: How many drinks containi ng alcohol do you have on a typical day when you are drinking? Patient does not drink Q3: How often do you have si x or more drinks on one occasion? Never 09/02/2024 Overall Financial Resource Strain (CARDIA) Answe r Date Recorded How hard is it for you to pa y for the very basics like food, housing, medical care, and heating? Not hard at all 09/02/2024 [facility] - Occupational Stress Questionnaire Answer Date Recorded Do you feel stress - tense, restless, nervous, or anxious, or unable to sleep at night because your mind is troubled all the time - these days? Not at all 09/02/2024 Exercise Vital Sign Answer Date Recorde d On average, how many days pe r week do you engage in moderate to strenuous exercise (like a brisk walk)? 0 days 09/02/2024 On average, how many minutes do you engage in exercise at this level? 0 min 09/02/2024 Hunger Vital Sign Answer Date Recorded Within the past 12 months, y ou worried that your food would run out before you got the money to buy more. Never true 09/02/19 25 Within the past 12 months, t he food you bought just didn't last and you didn't have money to get more. Never true 09/02/2024 PRAPARE - Transportation Answer Date Re corded In the past 12 months, has l ack of transportation kept you from medical appointments or from getting medications? No 08/14 In the past 12 months, has l ack of transportation kept you from meetings, work, or from getting things needed for daily living? No 09/02/2024 Housing Stability Vital Sign Answer Samson e Recorded In the last 12 months, was t here a time when you were not able to pay the mortgage or rent on time? No 09/02/2024 In the past 12 months, how m any times have you moved where you were living? 0 09/02/2024 At any time in the past 12 m [facility], were you homeless or living in a [facility] (including now)? No 09/02/2024 Sex and Gender Information Value Date Recorded Sex Assigned at Not on file Legal Sex Male 10:09 PM CDT Gender Identity Not on file Sexual Orientation Not on file Occupation Industry Job Start Date Job End Date retired [employer] Not on file Not on file Not on file Last Filed Vital Signs Vital Sign Reading Time Taken Comments Blood Pressure 112/60 09/27/2024 2:24 PM CDT Pulse 46 09/27/2024 2:24 PM CDT Temperature 36.6 C (97.9 F) 09/27/2024 2:24 PM CDT Respiratory Rate 16 09/27/2024 2:24 PM CDT Oxygen Saturation 97% 09/27/2024 2:24 PM CDT Inhaled Oxygen Concentration - - Weight 104.6 kg (230 lb 9.6 oz) 09/27/2024 2:24 PM CDT Height 190.5 cm (6' 3) 09/27/2024 2:24 PM CDT Body Mass Index 28.82 09/27/2024 2:24 PM CDT Plan of Treatment Upcoming Encounters Date Type Department Care Team (Late st Contact Info) Description 04/10/2025 8:00 AM CDT Office Visit [facility] - Neurology - [place] [address] [place] [address] Ceci De APRN, CUSTODIAN SUPERVISOR [address] [place] [address] Health Maintenance Due Date Last Done Comments Hepatitis C Virus (HCV) Screening 1945 TdaP Immunization 1945 Zoster Immunization (1 of 2) 1993 Pneumococcal Immunization (50+ years) (2 of 2 - PCV) 07/22/2022 07/22/2021 SARS-COV-2 Immunization (3 - season) 2024 06/19/2021, 10/18/2020 Pneumococcal Immunization Combined Discontinued 07/22/2021 Respiratory Syncytial Virus (RSV) Immunization (Adult) Completed 04/10/2023 Influenza Immunization Completed , 04/10/2023, 07/22/2021, Additional history exists Hepatitis B Immunization Aged Out No longer eligible based on patient's age to complete this topic Human Papillomavirus (HPV) Immunization Aged Out No longer eligible based on patient's age to complete this topic Meningococcal Immunization (ACWY) Aged Out No longer eligible based on patient's age to complete this topic Rotavirus Immunization Aged Out No lo nger eligible based on patient's age to complete this topic [facility] [id number] MEDIC[facility] C [employer]ET[employer] Advance Directives * Full Code (Latest Code Status on File) Date Activated Date Inactivated Comments 09/02/2024 5:44 PM CPR-Full Treat ment: FULL ARREST: Attempt Resuscitation/CPR wit intubation and mechanical ventilation. PRE-ARREST: Use entire range of life support measures to stabilize the patient. * Full Code Date Activated Date Inactivated Comments 09/02/2024 5:39 PM 09/02/2024 5:44 PM CPR-Full Jesse atment: FULL ARREST: Attempt Resuscitation/CPR wit intubation and mechanical ventilation. PRE-ARREST: Use entire range of life support measures to stabilize the patient. Care Teams Hazardous Materials Driver Relationship Specialty Start Date End Date Ankur Candelaria, [facility] [address] [place] [id number] PCP - General Physician Girls Swimming Coach 08/16/20 Phuc Black MD [address] [phone] Consulting Physician Urological Surgery 02/25/22 Andrew Kline MD [address] [place] [id number] Consulting Physician Neurology 09/27/24
--- OUTSIDE RECORDS SUMMARY | 2024-12-19 09:06 | XMS_ITS | Data Portability ---
Author Organization [facility] [place] [facility] Address [address] [address] Care Team Providers Care Conveyor Operator Name Role Phone HERNESTO CANDELARIA Primary Care Provider Assessment No assessment recorded. Plan of Treatment Reminders Order Date Submit Date Provider Last Modified By Organization Details Last Modified Time Details Appointments ANY 15 2024 01:45P M Hernesto Candelaria PA-C Not available Not available Not available Lab CBC 2024 025 [email or web address] [facility], [address] [facility] [address], [address], 10/10/2024 11:37:18 CMP, serum or plasma 2024 025 DELANO [facility], [address] [place] [address] 2, [place], [address], 09/20/2024 11:13:26 lipid panel, serum 2024 025 DELANO [facility], [address] [place] [address] 2, [place], [address], 09/20/2024 11:13:24 HbA1c (hemoglob in A1c), blood 2024 025 DELANO [facility], [address] [facility], [facility] [address], [place], [address], 09/20/2024 11:13:28 HbA1c (hemoglob in A1c), blood 2023 024 [email or web address] In-Office Order, Internal Use Only DO Not Attach Compendium DO Not Attach Compendium, Do Not Delete/merge, [id number] 07/05/2024 11:16:33 Referral endocrino logy referral 2024 025 [facility], [address], [address], [place], [address], 09/08/2024 12:28:21 Procedures None recorded. Surgeries None recorded. Imaging CT, lower leg, w/o contrast - has an implanted pacemaker 2024 [facility], [address] [facility], [place], [address], 12/15/2024 09:40:41 XR, tibia + fibula, 2 view 2024 [facility], [address] [place], [address], 11/30/2024 08:46:50 Medication Orders tadalafil 20 mg tablet 2024 025 [id number], [address] [facility], [place], [address], 09/19/2024 11:20:33 Jardiance 25 mg tablet 2024 025 [facility][id number], [address], [place], [address], 09/05/2024 16:23:17 amoxicill in 875 mg tablet 2023 025 [facility][id number], [address], [place], [address], 08/22/2024 11:06:14 Patient TargetsNo targets recorded. Patient Instructions Encounter Date Encounter Id Patient Instructions Last Modified By Organization Details Last Modified Time 07/05/2024 [id number] A healthy lifestyle: care instructions jnanney Not available 07/05/2024 11:17:36 type 2 diabetes: care instructions jnanney Not available 07/05/2024 11:16:33 09/05/2024 [id number] A healthy lifestyle: care instructions jnanney Not available 09/05/2024 16:26:55 type 2 diabetes: care instructions jnanney Not available 09/05/2024 16:23:13 09/19/2024 [id number] A healthy lifestyle: care instructions jnanney Not available 09/19/2024 11:17:13 type 2 diabetes: care instructions jnanney Not available 09/19/2024 11:17:14 11/24/2024 [id number] calf strain: rehab exercises jnanney Not available 11/24/2024 11:16:01 12/09/2024 [id number] calf strain: rehab exercises jnanney Not available 12/09/2024 15:09:26 Reason for Referral Endocrinology Referral for U ncontrolled type 2 diabetes mellitus Referring Physician: Hernesto Candelaria, Family Medicine, Encounter Date: 09/05/2024 Results Created Date Observation Date Name Description Value Unit Range Abnormal Flag Note LastModifiedBy Organization Detail LastModifiedTime 07/05/20 24 07/05/2024 HbA1c (hemo globi n A1c), blood HbA1c 8.0 Not Available In-Office Order Internal Use Only DO Not Attach Compendium DO Not Attach Compendium, Do Not Delete/merge, [id number] 07/05/2024 10:59:41 09/02/19 25 09/02/2024 CBC W Auto Diffe renti al panel - Blood leukocytes [#/volume] in blood by automated count 3.3 text: 4.00 - 12.00 10(3)/ mcL low WBC 3.30 (L) 4.00 - 12.00 10(3) /mcL 09/02 11:54 AM WASTEWATER OPERATOR [facility] Not Available Not Available 09/05/2024 10:02:05 09/02/19 25 09/02/2024 CBC W Auto Diffe renti al panel - Blood erythrocytes [#/volume] in blood by automated count 3.94 text: 4.40 - 5.80 10(6)/ mcL low RBC 3.94 (L) 4.40 - 5.80 10(6) /mcL 09/02 11:54 AM WASTEWATER OPERATOR [facility] Not Available Not Available 09/05/2024 10:02:05 09/02/19 25 09/02/2024 CBC W Auto Diffe renti al panel - Blood hemoglobin [mass/volume ] in blood 11.5 g/dL low: 13g/dL high: 16.5g/ dL low HEMOG LOBIN (HGB) 11.5 (L) 13.0 - 16.5 g/dL 09/02 11:54 AM WASTEWATER OPERATOR [facility] Not Available Not Available 09/05/2024 10:02:05 09/02/19 25 09/02/2024 CBC W Auto Diffe renti al panel - Blood hematocrit [volume fraction] of blood by automated count 34.4 % low: 38%hig h: 50% low HEMAT OCRIT (HCT) 34.4 (L) 38.0 - 50.0 % 09/02 11:54 AM [facility] [employer] R LAB Not Available Not Available 09/05/2024 10:02:05 09/02/19 25 09/02/2024 CBC W Auto Diffe renti al panel - Blood MCV [entitic volume] by automated count 87.3 fL low: 82fLhi gh: 96fL MCV 87.3 82.0 - 96.0 fL 09/02 11:54 AM [facility] Not Available Not Available 09/05/2024 10:02:05 09/02/19 25 09/02/2024 CBC W Auto Diffe renti al panel - Blood MCH [entitic mass] by automated count 29.2 pg low: 26pghi gh: 32pg MCH 29.2 26.0 - 32.0 pg 09/02 11:54 AM [facility] Not Available Not Available 09/05/2024 10:02:05 09/02/19 25 09/02/2024 CBC W Auto Diffe renti al panel - Blood MCHC [mass/volume ] by automated count 33.4 g/dL low: 31g/dL high: 36g/dL MCHC 33.4 31.0 - 36.0 g/dL 09/02 11:54 AM WASTEWATER [facility] Not Available Not Available 09/05/2024 10:02:05 09/02/19 25 09/02/2024 CBC W Auto Diffe renti al panel - Blood platelets [#/volume] in blood 95 text: 140 - 440 10(3)/ mcL low PLATE LET COUNT 95 (L) 140 - 440 10(3) /mcL 09/02 11:54 AM [facility] Not Available Not Available 09/05/2024 10:02:05 09/02/19 25 09/02/2024 CBC W Auto Diffe renti al panel - Blood erythrocyte distribution width [ratio] by automated count 13.4 % low: 11.8%h igh: 15.5% RDW 13.4 11.8 - 15.5 % 09/02 11:54 AM [facility] Not Available Not Available 09/05/2024 10:02:05 09/02/19 25 09/02/2024 CBC W Auto Diffe renti al panel - Blood platelet mean volume [entitic volume] in blood by automated count 10.2 fL low: 8fLhig h: 12.6fL MPV 10.2 8.0 - 12.6 fL 09/02 11:54 AM [facility] Not Available Not Available 09/05/2024 10:02:05 09/02/19 25 09/02/2024 CBC W Auto Diffe renti al panel - Blood neutrophils/ 100 leukocytes in blood by automated count 52.5 % low: 40%hig h: 68% NEUTR OPHIL S 52.5 40.0 - 68.0 % 09/02 11:54 AM [facility] Not Available Not Available 09/05/2024 10:02:05 09/02/19 25 09/02/2024 CBC W Auto Diffe renti al panel - Blood lymphocytes/ 100 leukocytes in blood by automated count 33.9 % low: 19%hig h: 49% LYMPH OCYTE S 33.9 19.0 - 49.0 % 09/02 11:54 AM WASTEWATER OPERATOR [facility] Not Available Not Available 09/05/2024 10:02:05 09/02/19 25 09/02/2024 CBC W Auto Diffe renti al panel - Blood monocytes/10 0 leukocytes in blood by automated count 8.2 % low: 3%high : 13% MONOC YTES 8.2 3.0 - 13.0 % 09/02 11:54 AM WASTEWATER OPERATOR [facility] Not Available Not Available 09/05/2024 10:02:05 09/02/19 25 09/02/2024 CBC W Auto Diffe renti al panel - Blood eosinophils/ 100 leukocytes in blood by automated count 4.8 % low: 0%high : 8% EOSIN OPHIL S 4.8 0.0 - 8.0 % 09/02 11:54 AM WASTEWATER OPERATOR [facility] Not Available Not Available 09/05/2024 10:02:05 09/02/19 25 09/02/2024 CBC W Auto Diffe renti al panel - Blood basophils/10 0 leukocytes in blood by automated count 0.6 % low: 0%high : 1% BASOP HILS 0.6 0.0 - 1.0 % 09/02 11:54 AM [facility] Not Available Not Available 09/05/2024 10:02:05 09/02/19 25 09/02/2024 CBC W Auto Diffe renti al panel - Blood neutrophils [#/volume] in blood by automated count 1.73 text: 1.40 - 5.30 10(3)/ mcL ABSOL KIPNUK NEUTR OPHIL S 1.73 1.40 - 5.30 10(3) /mcL 09/02 11:54 AM WASTEWATER OPERATOR [facility] Not Available Not Available 09/05/2024 10:02:05 09/02/19 25 09/02/2024 CBC W Auto Diffe renti al panel - Blood lymphocytes [#/volume] in blood by automated count 1.12 text: 0.90 - 3.30 10(3)/ mcL ABSOL KIPNUK LYMPH OCYTE S 1.12 0.90 - 3.30 10(3) /mcL 09/02 11:54 AM WASTEWATER OPERATOR [facility] Not Available Not Available 09/05/2024 10:02:05 09/02/19 25 09/02/2024 CBC W Auto Diffe renti al panel - Blood monocytes [#/volume] in blood by automated count 0.27 text: 0.10 - 0.90 10(3)/ mcL ABSOL KIPNUK MONOC YTES 0.27 0.10 - 0.90 10(3) /mcL 09/02 11:54 AM WASTEWATER OPERATOR [facility] Not Available Not Available 09/05/2024 10:02:05 09/02/19 25 09/02/2024 CBC W Auto Diffe renti al panel - Blood eosinophils [#/volume] in blood by automated count 0.16 text: 0.00 - 0.50 10(3)/ mcL ABSOL KIPNUK EOSIN OPHIL 0.16 0.00 - 0.50 10(3) /mcL 09/02 11:54 AM WASTEWATER O[facility]ATOR [facility] Not Available Not Available 09/05/2024 10:02:05 09/02/19 25 09/02/2024 CBC W Auto Diffe renti al panel - Blood basophils [#/volume] in blood by automated count 0.02 text: 0.00 - 0.10 10(3)/ mcL ABSOL KIPNUK BASOP HILS 0.02 0.00 - 0.10 10(3) /mcL 09/02 11:54 AM WASTEWATER OPERATOR [facility] Not Available Not Available 09/05/2024 10:02:05 09/02/19 25 09/02/2024 CBC W Auto Diffe renti al panel - Blood nucleated erythrocytes /100 leukocytes [ratio] in blood 0 NRBC PER 100 WBC 0 09/02 11:54 AM WASTEWATER OPERATOR [facility] Not Available Not Available 09/05/2024 10:02:05 09/02/19 25 09/02/2024 CBC W Auto Diffe renti al panel - Blood legal support analyst review of results Yes RESUL TS ARE CONSI STENT WITH PERIP HERAL SMEAR REVIE W Yes 09/02 11:54 AM WASTEWATER OPERATOR [facility] [employer] [facility] LAB Not Available Not Available 09/05/2024 10:02:05 09/02/19 25 09/02/2024 CBC W Auto Diffe renti al panel - Blood erythrocytes [morphology] in blood by automated count Yes RBC MORPH OLOGY CONSI STENT WITH INDIC ES Yes 09/02 11:54 AM WASTEWATER OPERATOR [facility] [employer] [place] [facility] Not Available Not Available 09/05/2024 10:02:05 09/02/19 25 09/02/2024 CBC W Auto Diffe renti al panel - Blood interpretati on and review of laboratory results Abnorm al Not Available Not Available 10:02:05 09/02/19 25 09/02/2024 Thyro xine (T4) free [Mass /volu me] in Serum or Plasm a thyroxine (T4) free [mass/volume ] in serum or plasma 1 NG/dL low: 0.7NG/ dLhigh : 1.9NG/ dL T4 FREE 1.0 0.7 - 1.9 ng/dL 09/02 2:03 PM WASTEWATER OPERATOR [facility] Not Available Not Available 09/05/2024 10:02:05 09/02/19 25 09/02/2024 Thyro xine (T4) free [Mass /volu me] in Serum or Plasm a interpretati on and review of laboratory results Normal Not Available Not Available 08/14 10:02:05 09/02/19 25 09/02/2024 Thyro tropi n [Unit s/vol ume] in Serum or Plasm a thyrotropin [units/volum e] in serum or plasma 1.414 text: 0.300 - 5.000 mIU/L TSH 1.414 0.300 - 5.000 mIU/L 09/02 2:03 PM WASTEWATER OPERATOR [facility] [employer] [facility] LAB Not Available Not Available 09/05/2024 10:02:05 09/02/19 25 09/02/2024 Thyro tropi n [Unit s/vol ume] in Serum or Plasm a interpretati on and review of laboratory results Normal Not Available Not Available 08/14 10:02:05 09/02/19 25 09/02/2024 aPTT in Plate let poor plasm a by Coagu latio n assay APTT in platelet poor plasma by coagulation assay 34 text: 24 - 36 sec PTT 34 24 - 36 sec 09/02 11:45 AM WASTEWATER OPERATOR [facility] [employer] [facility] LAB Not Available Not Available 09/05/2024 10:02:05 09/02/19 25 09/02/2024 aPTT in Plate let poor plasm a by Coagu latio n assay Unknown Analyte Therap eutic range for unfrac tionat ed hepari n at 0.3-0. 7 U/mL is an aPTT value in the range of 71-100 second s. Critic al value for the PTT test is >= 122 second s. Thera peuti c range for unfra ction ated hepar in at 0.3-0 .7 U/mL is an aPTT value in the range of 71-10 0 secon ds. Criti carson value for the PTT test is >= 122 secon ds. Not Available Not Available 09/05/2024 10:02:05 09/02/19 25 09/02/2024 aPTT in Plate let poor plasm a by Coagu latio n assay interpretati on and review of laboratory results Normal Not Available Not Available 08/14 10:02:05 09/02/19 25 09/02/2024 PT panel - Plate let poor plasm a by Coagu latio n assay prothrombin time (PT) 15.8 text: 11.6 - 14.8 sec high PROTI ME-PA TIENT 15.8 (H) 11.6 - 14.8 sec 09/02 11:45 AM [facility] Not Available Not Available 09/05/2024 10:02:05 09/02/19 25 09/02/2024 PT panel - Plate let poor plasm a by Coagu latio n assay INR in platelet poor plasma by coagulation assay 1.3 low: 0.9hig h: 1.2 high INR 1.3 (H) 0.9 - 1.2 09/02 11:45 AM WASTEWATER OPERATOR [facility] [facility] Not Available Not Available 09/05/2024 10:02:05 09/02/19 25 09/02/2024 PT panel - Plate let poor plasm a by Stef ervin assay interpretati on and review of laboratory results Abnorm al Not Available Not Available 10:02:05 09/02/19 25 09/02/2024 Lipid 1995 panel - Serum or Plasm a cholesterol [mass/volume ] in serum or plasma 82 mg/dL high: 200mg/ dL CHAVA STERO L 82 <200 mg/dL 09/02 1:44 PM WASTEWATER OPERATOR [facility] Not Available Not Available 09/05/2024 10:02:05 09/02/19 25 09/02/2024 Lipid 1995 panel - Serum or Plasm a triglyceride [mass/volume ] in serum or plasma 143 mg/dL high: 150mg/ dL TRIGL YCERI [place] 143 <150 mg/dL 09/02 1:44 PM WASTEWATER OPERATOR [facility] Not Available Not Available 09/05/2024 10:02:05 09/02/19 25 09/02/2024 Lipid 1996 panel - Serum or Plasm a cholesterol in HDL [mass/volume ] in serum or plasma 33 mg/dL low: 40mg/d L low HDL CHAVA STERO L 33 (L) >40 mg/dL 09/02 1:44 PM WASTEWATER OPERATOR [facility] Not Available Not Available 09/05/2024 10:02:05 09/02/19 25 09/02/2024 Lipid 1996 panel - Serum or Plasm a cholesterol in LDL [mass/volume ] in serum or plasma 20 mg/dL high: 130mg/ dL LDL 20 <130 mg/dL 09/02 1:44 PM WASTEWATER OPERATOR [facility] Not Available Not Available 09/05/2024 10:02:05 09/02/19 25 09/02/2024 Lipid 1995 panel - Serum or Plasm a cholesterol in VLDL [mass/volume ] in serum or plasma 29 mg/dL low: 10mg/d Lhigh: 50mg/d L VLDL 29 10 - 50 mg/dL 09/02 1:44 PM WASTEWATER OPERATOR [facility] [facility] LAB Not Available Not Available 09/05/2024 10:02:05 09/02/19 25 09/02/2024 Lipid 1996 panel - Serum or Plasm a cholesterol. total/choles terol in HDL [mass ratio] in serum or plasma 2.5 low: 0high: 4.4 CHOL/ HDL RATIO 2.5 0.0 - 4.4 09/02 1:44 PM WASTEWATER OPERATOR [facility] Not Available Not Available 09/05/2024 10:02:05 09/02/19 25 09/02/2024 Lipid 1996 panel - Serum or Plasm a cholesterol non HDL [mass/volume ] in serum or plasma 49 mg/dL high: 130mg/ dL NON-H DL CHAVA STERO L 49 <130 mg/dL 09/02 1:44 PM [facility] Not Available Not Available 09/05/2024 10:02:05 09/02/19 25 09/02/2024 Lipid 1996 panel - Serum or Plasm a interpretati on and review of laboratory results Abnorm al Not Available Not Available 10:02:05 09/02/19 25 09/02/2024 Compr ehens pamela metab olic 1999 panel - Serum or Plasm a sodium [moles/volum e] in serum or plasma 134 mmol/ L low: 136mmo l/Lhig h: 145mmo l/L low SODIU M 134 (L) 136 - 145 mmol/ L 09/02 11:53 AM [facility] Not Available Not Available 09/05/2024 10:02:04 09/02/19 25 09/02/2024 Compr ehens pamela metab olic 1999 panel - Serum or Plasm a potassium [moles/volum e] in serum or plasma 3.9 mmol/ L low: 3.5mmo l/Lhig h: 5.1mmo l/L POTAS SIUM 3.9 3.5 - 5.1 mmol/ L 09/02 11:53 AM [facility] [facility] LAB Not Available Not Available 09/05/2024 10:02:04 09/02/19 25 09/02/2024 Compr ehens pamela metab olic 1999 panel - Serum or Plasm a chloride [moles/volum e] in serum or plasma 100 mmol/ L low: 98mmol /Lhigh : 107mmo l/L CHLOR FARHAN 100 98 - 107 mmol/ L 09/02 11:53 AM [facility] Not Available Not Available 09/05/2024 10:02:04 09/02/19 25 09/02/2024 Compr ehens pamela metab olic 2000 panel - Serum or Plasm a carbon dioxide, total [moles/volum e] in serum or plasma 26 mmol/ L low: 22mmol /Lhigh : 30mmol /L CO2, VENOU S 26 22 - 30 mmol/ L 09/02 11:53 AM [facility] Not Available Not Available 09/05/2024 10:02:04 09/02/19 25 09/02/2024 Compr ehens pamela metab olic 1999 panel - Serum or Plasm a anion gap in serum or plasma 11.9 mmol/ L high: 18mmol /L ANION GAP 11.9 <18.0 mmol/ L 09/02 11:53 AM [facility] [employer] Not Available Not Available 09/05/2024 10:02:04 09/02/19 25 09/02/2024 Compr ehens pamela metab olic 1999 panel - Serum or Plasm a glucose [mass/volume ] in serum or plasma 239 mg/dL low: 70mg/d Lhigh: 99mg/d L high GLUCO SE 239 (H) 70 - 99 mg/dL 09/02 11:53 AM [facility] Not Available Not Available 09/05/2024 10:02:04 09/02/19 25 09/02/2024 Compr ehens pamela metab olic 1999 panel - Serum or Plasm a urea nitrogen [mass/volume ] in serum or plasma 21 mg/dL low: 8mg/dL high: 26mg/d L BUN 21 8 - 26 mg/dL 09/02 11:53 AM [facility] Not Available Not Available 09/05/2024 10:02:04 09/02/19 25 09/02/2024 Compr ehens pamela metab olic 2000 panel - Serum or Plasm a creatinine [mass/volume ] in serum or plasma 1.08 mg/dL low: 0.7mg/ dLhigh : 1.3mg/ dL CREAT ININE , BLOOD 1.08 0.70 - 1.30 mg/dL 09/02 11:53 AM [facility]ASTEW[facility] O[facility] Not Available Not Available 09/05/2024 10:02:04 09/02/19 25 09/02/2024 Compr ehens pamela metab olic 2000 panel - Serum or Plasm a urea nitrogen/cre atinine [mass ratio] in serum or plasma 19 text: 12 - 20 ratio BUN/C REATI NINE RATIO 19 12 - 20 ratio 09/02 11:53 AM [facility] [employer] [facility] LAB Not Available Not Available 09/05/2024 10:02:04 09/02/19 25 09/02/2024 Compr ehens pamela metab olic 2000 panel - Serum or Plasm a protein [mass/volume ] in serum or plasma 6.9 g/dL low: 6g/dLh igh: 8g/dL TOTAL PROTE IN 6.9 6.0 - 8.0 g/dL 09/02 11:53 AM [facility] [employer] [facility] Not Available Not Available 09/05/2024 10:02:04 09/02/19 25 09/02/2024 Compr ehens pamela metab olic 2000 panel - Serum or Plasm a albumin [mass/volume ] in serum or plasma 3.9 g/dL low: 3.5g/d Lhigh: 5g/dL ALBUM IN 3.9 3.5 - 5.0 g/dL 09/02 11:53 AM [facility] Not Available Not Available 09/05/2024 10:02:04 09/02/19 25 09/02/2024 Compr [employer] pamela metab olic 1999 panel - Serum or Plasm a albumin/glob ulin [mass ratio] in serum or plasma 1.3 low: 1high: 2.2 A/G RATIO 1.3 1.0 - 2.2 09/02 11:53 AM WASTEWATER OPERATOR [facility] [employer] R LAB Not Available Not Available 09/05/2024 10:02:04 09/02/19 25 09/02/2024 Compr [employer] pamela metab olic 1999 panel - Serum or Plasm a calcium [mass/volume ] in serum or plasma 9 mg/dL low: 8.7mg/ dLhigh : 10.5mg /dL CALCI UM 9.0 8.7 - 10.5 mg/dL 09/02 11:53 AM WASTEWATER OPERATOR [facility] [employer] [facility] LAB Not Available Not Available 09/05/2024 10:02:04 09/02/19 25 09/02/2024 Compr [employer]yens pamela metab olic 1999 panel - Serum or Plasm a bilirubin.to ryan [mass/volume ] in serum or plasma 0.5 mg/dL low: 0.2mg/ dLhigh : 1.2mg/ dL T BILI 0.5 0.2 - 1.2 mg/dL 09/02 11:53 AM WASTEWATER OPERATOR [facility] Not Available Not Available 09/05/2024 10:02:04 09/02/19 25 09/02/2024 Compr Be[employer]yens pamela metab olic 1999 panel - Serum or Plasm a aspartate aminotransfe rase [enzymatic activity/vol ume] in serum or plasma 14 U/L high: 43U/L SGOT (AST) 14 <43 U/L 09/02 11:53 AM WASTEWATER OPERATOR [facility] [employer] [facility] LAB Not Available Not Available 09/05/2024 10:02:04 09/02/19 25 09/02/2024 Compr ehens pamela metab olic 2000 panel - Serum or Plasm a alanine aminotransfe rase [enzymatic activity/vol ume] in serum or plasma 11 U/L high: 56U/L SGPT (ALT) 11 <56 U/L 02/21 /2025 11:53 AM WASTEWATER OPERATOR [facility] Not Available Not Available 09/05/2024 10:02:04 09/02/19 25 09/02/2024 Compr Be[employer]yens pamela metab olic 2000 panel - Serum or Plasm a alkaline phosphatase [enzymatic activity/vol ume] in serum or plasma 55 U/L low: 40U/Lh igh: 150U/L ALKAL INE PHOSP HATAS E 55 40 - 150 U/L 09/02 11:53 AM WASTEWATER OPERATOR [facility] [facility] Not Available Not Available 09/05/2024 10:02:04 09/02/19 25 09/02/2024 Compr [employer] pamela Applika olic 2000 panel - Serum or Plasm a glomerular filtration rate/1.73 sq M.predicted among non-blacks [volume rate/area] in serum, plasma or blood by creatinine-b ased formula (MDRD) low: 60 GFR, ESTIM ATED >60 >=60 09/02 11:53 AM WASTEWATER OPERATOR [facility] [facility] Not Available Not Available 09/05/2024 10:02:04 09/02/19 25 09/02/2024 Compr [employer] pamela Applika olic 1999 panel - Serum or Plasm a glomerular filtration rate/1.73 sq M.predicted among blacks [volume rate/area] in serum, plasma or blood by creatinine-b ased formula (MDRD) low: 60 GFR, EST. AFRIC AN >60 >=60 09/02 11:53 AM WASTEWATER OPERATOR [facility] [facility] Not Available Not Available 09/05/2024 10:02:04 09/02/19 25 09/02/2024 Compr [employer] pamela Applika olic 2000 panel - Serum or Plasm a glomerular filtration rate/1.73 sq M.predicted among non-blacks [volume rate/area] in serum, plasma or blood by creatinine-b ased formula (MDRD) low: 60 GFR, EST. NONAF RICAN >60 >=60 09/02 11:53 AM WASTEWATER OPERATOR [facility] Not Available Not Available 09/05/2024 10:02:04 09/02/19 25 09/02/2024 Compr ehens pamela metab olic 2000 panel - Serum or Plasm a interpretati on and review of laboratory results Abnorm al Not Available Not Available 10:02:04 09/02/19 25 09/02/2024 Creat inine [Mass /volu me] in Blood creatinine [mass/volume ] in blood 1.1 mg/dL low: 0.6mg/ dLhigh : 1.3mg/ dL CREAT ININE - POCT 1.1 0.6 - 1.3 mg/dL 09/02 10:47 AM WASTEWATER OPERATOR [facility] Not Available Not Available 09/05/2024 10:02:05 09/02/19 25 09/02/2024 Creat inine [Mass /volu me] in Blood interpretati on and review of laboratory results Normal Not Available Not Available 08/14 10:02:05 09/03/19 25 09/03/2024 Gluco se [Mass /volu me] in Blood glucose [mass/volume ] in blood 241 mg/dL low: 70mg/d Lhigh: 99mg/d L high GLUCO SE,BE DSIDE POCT 241 (H) 70 - 99 mg/dL 09/03 11:05 AM WASTEWATER OPERATOR [facility] [employer] [facility] Not Available Not Available 09/05/2024 10:02:04 09/03/19 25 09/03/2024 Gluco se [Mass /volu me] in Blood interpretati on and review of laboratory results Abnorm al Not Available Not Available 10:02:04 09/20/19 25 09/20/2024 SPECI MEN STATU S REPOR T specimen status report TNP Test not perfo rmed. Insuf ficie nt speci men to perfo rm or compl ete robinson sis. TEST: [id number] 2 CBC, Plate let, No Diffe renti al Not Available [facility] & [address], [place], [address], 09/20/2024 11:13:23 09/20/19 25 09/20/2024 LIPID PANEL cholesterol, total 67 mg/dL 100-19 9 below low normal Not Available [address], [address], 09/20/2024 11:13:24 09/20/19 25 09/20/2024 LIPID PANEL triglyceride s 72 mg/dL 0-149 Not Available [address], [address], 09/20/2024 11:13:24 09/20/19 25 09/20/2024 LIPID PANEL HDL cholesterol 37 mg/dL >39 below low normal Not Available [address], [address], 09/20/2024 11:13:24 09/20/19 25 09/20/2024 LIPID PANEL VLDL cholesterol carson 16 mg/dL 5-40 Not Available [address], [address], 09/20/2024 11:13:24 09/20/19 25 09/20/2024 LIPID PANEL LDL chol calc (nih) 14 mg/dL 0-99 Not Available [address], [address], 09/20/2024 11:13:24 09/20/19 25 09/20/2024 COMP. METAB OLIC PANEL (14) glucose 113 mg/dL 70-99 above high normal Not Available [address], [address], 09/20/2024 11:13:26 09/20/19 25 09/20/2024 COMP. METAB OLIC PANEL (14) BUN 21 mg/dL 8-27 Not Available [address], [address], 09/20/2024 11:13:26 09/20/19 25 09/20/2024 COMP. METAB OLIC PANEL (14) creatinine 1.21 mg/dL 0.76-1 .27 Not Available [address], [address], 09/20/2024 11:13:26 09/20/19 25 09/20/2024 COMP. METAB OLIC PANEL (14) eGFR 60 mL/mi n/1.7 3 >59 Not Available [address], [address], 09/20/2024 11:13:26 09/20/19 25 09/20/2024 COMP. METAB OLIC PANEL (14) BUN/creatini ne ratio 17 10-24 Not Available [address], [address], 09/20/2024 11:13:26 09/20/19 25 09/20/2024 COMP. METAB OLIC PANEL (14) sodium 141 mmol/ L 134-14 4 Not Available [address], [address], 09/20/2024 11:13:26 09/20/19 25 09/20/2024 COMP. METAB OLIC PANEL (14) potassium 4.1 mmol/ L 3.5-5. 2 Not Available [address], [address], 09/20/2024 11:13:26 09/20/19 25 09/20/2024 COMP. METAB OLIC PANEL (14) chloride 101 mmol/ L 96-106 Not Available [address], [address], 09/20/2024 11:13:26 09/20/19 25 09/20/2024 COMP. METAB OLIC PANEL (14) carbon dioxide, total 25 mmol/ L 20-29 Not Available [address], [address], 09/20/2024 11:13:26 09/20/19 25 09/20/2024 COMP. METAB OLIC PANEL (14) calcium 9.8 mg/dL 8.6-10 .2 Not Available [address], [address], 09/20/2024 11:13:26 09/20/19 25 09/20/2024 COMP. METAB OLIC PANEL (14) protein, total 7.3 g/dL 6.0-8. 5 Not Available [address], [address], 09/20/2024 11:13:26 09/20/19 25 09/20/2024 COMP. METAB OLIC PANEL (14) albumin 4.4 g/dL 3.7-4. 7 Not Available [address], [address], 09/20/2024 11:13:26 09/20/19 25 09/20/2024 COMP. METAB OLIC PANEL (14) globulin, total 2.9 g/dL 1.5-4. 5 Not Available [address], [address], 09/20/2024 11:13:26 09/20/19 25 09/20/2024 COMP. METAB OLIC PANEL (14) bilirubin, total 0.6 mg/dL 0.0-1. 2 Not Available [address], [address], 09/20/2024 11:13:26 09/20/19 25 09/20/2024 COMP. METAB OLIC PANEL (14) alkaline phosphatase 76 IU/L 44-121 Not Available [address], [address], 09/20/2024 11:13:26 09/20/19 25 09/20/2024 COMP. METAB OLIC PANEL (14) AST (SGOT) 15 IU/L 0-40 Not Available [address], [address], 09/20/2024 11:13:26 09/20/19 25 09/20/2024 COMP. METAB OLIC PANEL (14) ALT (SGPT) 15 IU/L 0-44 Not Available [address], [address], 09/20/2024 11:13:26 09/20/19 25 09/20/2024 CARDI OVASC ULAR REPOR T interpretati on Note Medic al Direc tor's Note: Speci men Statu s Repor t: TNP. Test not perfo rmed. Insuf ficie nt speci men to perfo rm or compl ete robinson sis. TEST: [id number] 2 CBC, Plate let, No Diffe renti al Suppl ement al repor t is avail able. Not Available [address], [address], 09/20/2024 11:13:27 09/20/19 25 09/20/2024 CARDI OVAGA ULAR REPOR T pdf . Not Available [address], [address], 09/20/2024 11:13:27 09/20/1909/20/2024 HEMOG LOBIN A1C hemoglobin A1C 7.5 % 4.8-5. 6 above high normal Predi abete s: 5.7 - 6.4 Diabe pebbles: >6.4 Glyce mckay contr ol for adult s with diabe pebbles: <7.0 Not Available [address], [address], 09/20/2024 11:13:28 12/09/19 25 12/08/2024 Hemog lobin A1c/H emogl obin. total in Blood hemoglobin A1C, POC 5.6 % low: 4%high : 5.6% Not Available Not Available 12/08/2024 13:04:02 09/23/19 25 09/21/2024 elect idalia green am No observ ation record ed. [email or web address] [facility] [address], [place], [address], 09/22/2024 09:25:58 12/01/19 25 11/24/2024 XR, tibia + fibul a, 2 view No observ ation record ed. [email or web address], [place], [address], 11/30/2024 13:54:07 Result Notes None recorded. Problems Name Problem SNOMED Code Status Onset Date Resolution Date Notes Provider Name and Address Organization Details Recorded Time Diabetes mellitus 29667052 Active 2018 Not Available [facility] 3 20:47:01 Pure hypercholeste rolemia 619179370 Active 2013 Not Available [facility] 3 20:47:01 Hypertensive disorder 02669640 Active 2013 Not Available [facility] 3 20:47:01 Type 2 diabetes mellitus 89609330 Active 2013 Not Available [facility] 3 20:47:01 Notes:Some problems listed i n Document: #[id number] could not be added to this patient's chart. Please review this document and add these problems to the patient's chart manually as needed. Problem Notes None recorded. Procedures Surgical History Date Name Laterality Status Provider Name and Address Organization Details Recorded Time 2 procedure on neck completed Suzi Albright [place] [facility] 06/02/2022 10:57:19 1 Colonoscopy completed Brianne Catherine [place] [facility] 06/05/2021 09:47:49 1 EGD/Endoscopy completed JUAN Lutz [place] [facility] 06/05/2021 13:27:41 1 Colonoscopy completed JUAN Lutz [place] [facility] 06/05/2021 13:32:16 Pacemaker completed Lilli Coleman MA [facility] 01/03/2021 11:11:58 Eye Surgery completed Loly Horn MA [facility] 11/19/2017 10:19:58 Vasectomy completed Loly Horn MA [facility] 11/19/2017 10:20:03 Imaging Results None recorded. Procedure Notes None recorded. Medical Equipment None Reported. Allergies No known drug allergies Medications Name Sig Start Date Stop Date Status Note LastModified by Organization Details LastModified Time klor-con m10 10 meq tbcr 02/13 completed Not Available Not Available Not Available triamt/hct z tab 37.5-25 06/12 completed Not Available Not Available Not Available metformin hydrochlor farhan 1000 mg tabs 02/13 completed Not Available Not Available Not Available dorzolamid e hcl 2 % soln 06/12 completed Not Available Not Available Not Available levemir flextouch 100 unit/ml sopn 02/13 completed Not Available Not Available Not Available timolol maleate 0.5 % soln 02/13 completed Not Available Not Available Not Available gabapentin 100 mg caps 02/13 completed Not Available Not Available Not Available losartan potassium 100 mg tabs 06/12 completed Not Available Not Available Not Available fluorometh olone 0.1 % susp 02/13 completed Not Available Not Available Not Available tamsulosin hydrochlor farhan 0.4 mg caps 02/13 completed Not Available Not Available Not Available omeprazole dr 40 mg cpdr 02/13 completed Not Available Not Available Not Available glimepirid e 2 mg tabs 02/13 completed Not Available Not Available Not Available simvastati n 20 mg tabs 02/13 completed Not Available Not Available Not Available losartan 50 mg tablet TAKE 1 TABLET BY MOUTH EVERY DAY 01/03 completed Not Available Not Available Not Available cyclobenza marc 10 mg tablet TAKE 1 TABLET BY MOUTH THREE TIMES A DAY NEEDED FOR MUSCLE SPASMS 01/16 completed Not Available Not Available Not Available metformin 500 mg tablet TAKE 1 TABLET BY MOUTH TWICE A DAY active Not Available Not Available No t Available doxycyclin e hyclate 100 mg capsule 04/05 completed Not Available Not Available Not Available atorvastat in 20 mg tablet TAKE 1 TABLET BY MOUTH EVERY DAY active Not Available Not Available No t Available benzonatat e 200 mg capsule TAKE 1 CAPSULE BY MOUTH THREE TIMES A DAY NEEDED FOR 30 DAYS 09/05 completed Not Available Not Available Not Available valacyclov ir 1 gram tablet TAKE 1 TABLET BY MOUTH EVERY 12 HOURS FOR 5 DAYS 07/30 completed Not Available Not Available Not Available diltiazem CD 240 mg capsule,ex tended release 24 hr TAKE 1 CAPSULE BY MOUTH EVERY DAY 10/08 completed Not Available Not Available Not Available metoprolol succinate ER 100 mg tablet,ext ended release 24 hr TAKE 1 TABLET BY MOUTH EVERY DAY active Not Available Not Available No t Available gabapentin 400 mg capsule TAKE 1 CAPSULE BY MOUTH THREE TIMES A DAY active Not Available Not Available No t Available cyanocobal burris (vit B-12) 1,000 mcg tablet Take by oral route. 01/03 completed Not Available Not Available Not Available Pred Mild 0.12 % eye drops,susp ension Instill 1 drop every day by ophthalm ic route for 15 days. 07/22 completed Not Available Not Available Not Available amlodipine 5 mg tablet 09/14 completed Not Available Not Available Not Available sulfametho xazole 800 mg-trimeth oprim 160 mg tablet TAKE 1 TABLET BY MOUTH TWICE A DAY 11/29 completed Not Available Not Available Not Available omeprazole 40 mg capsule,de layed release TAKE 1 CAPSULE BY MOUTH EVERY DAY active Not Available Not Available No t Available glimepirid e 2 mg tablet TAKE 1 TABLET BY MOUTH EVERY DAY 11/29 completed Not Available Not Available Not Available ketorolac 0.5 % eye drops PLEASE SEE ATTACHED FOR DETAILED DIRECTIO NS 09/05 completed Not Available Not Available Not Available cefadroxil 500 mg capsule TAKE 1 CAPSULE BY MOUTH TWICE A DAY 01/03 completed Not Available Not Available Not Available oxycodone- acetaminop hen 5 mg-325 mg tablet TAKE 1 TABLET BY MOUTH EVERY 4-6 HOURS 01/16 completed Not Available Not Available Not Available Guaiatussi n AC 10 mg-100 mg/5 mL oral liquid Take 10 mL every 4 hours by oral route as needed for 10 days. 02/13 completed Not Available Not Available Not Available amoxicilli n 875 mg tablet TAKE 1 TABLET BY MOUTH EVERY 12 HOURS FOR 10 DAYS 08/22 completed Not Available Not Available Not Available prednisolo ne acetate 1 % eye drops,susp ension PLEASE SEE ATTACHED FOR DETAILED DIRECTIO NS 07/30 completed Not Available Not Available Not Available tamsulosin 0.4 mg capsule TAKE 1 CAPSULE BY MOUTH EVERY EVENING FOR 90 DAYS active Not Available Not Available No t Available AudioBetaToCleanBeeBaby Ultra Test strips CHECK BLOOD SUGAR 2 TIMES A DAY OR DIRECTED active Not Available Not Available No t Available doxycyclin e monohydrat e 100 mg capsule take one capsule by mouth twice a day for 14 days 02/13 completed Not Available Not Available Not Available cephalexin 500 mg capsule TAKE 1 CAPSULE BY MOUTH THREE TIMES DAILY 10/08 completed Not Available Not Available Not Available simvastati n 20 mg tablet TAKE 1 TABLET BY MOUTH EVERY DAY AT BEDTIME. PATIENT NEEDS APPT 01/03 completed Not Available Not Available Not Available metformin 1,000 mg tablet TAKE 2 TABLETS BY MOUTH EVERY DAY, NEEDS APPT BEFORE NEXT REFILL 11/29 completed Not Available Not Available Not Available fluorometh olone 0.1 % eye drops,susp ension INSTILL 1 DROP INTO BOTH EYES EVERY DAY active Not Available Not Available No t Available lidocaine 5 % topical patch APPLY 1 PATCH BY TOPICAL ROUTE ONCE DAILY (MAY WEAR UP TO 12HOURS. ) 01/16 completed Not Available Not Available Not Available polymyxin B sulfate 10,000 unit-trime thoprim 1 mg/mL eye drops PUT 1 DROP INTO AFFECTED EYE 4 TIMES A DAY FOR 7 DAYS BEGIN AFTER 1ST OFFICE VISIT AFTER OPERATIO N 07/30 completed Not Available Not Available Not Available nitroglyce rin 0.[address] 1 BY SUBLINGU AL ROUTE EVERY 5 MINUTES NEEDED FOR CHEST DISCOMFO RT OR DYSPNEA 09/05 completed Not Available Not Available Not Available betamethas one, augmented 0.05 % topical ointment 06/12 completed Not Available Not Available Not Available triamteren e 37.5 mg-hydroch lorothiazi de 25 mg tablet TAKE 1 TABLET BY MOUTH EVERY DAY 01/03 completed Not Available Not Available Not Available dorzolamid e 22.3 mg-timolol 6.8 mg/mL eye drops INSTILL 1 DROP INTO BOTH EYES TWICE A DAY active Not Available Not Available No t Available amoxicilli n 250 mg capsule 07/17 completed Not Available Not Available Not Available hydrochlor othiazide 25 mg tablet TAKE 1 TABLET BY MOUTH EVERY DAY active Taking every other day Not Available Not Available Not Available gabapentin 100 mg capsule TAKE 2 CAPSULES BY MOUTH TWICE A DAY active Not Available Not Available No t Available cefuroxime axetil 500 mg tablet Take 1 tablet every 12 hours by oral route for 10 days. 02/25 completed Not Available Not Available Not Available methylpred nisolone 4 mg tablets in a dose pack TAKE 6 TABLETS ON DAY 1 DIRECTED ON PACKAGE AND DECREASE BY 1 TAB EACH DAY FOR A TOTAL OF 6 DAYS 07/05 completed Not Available Not Available Not Available albuterol sulfate HFA 90 mcg/actuat ion aerosol inhaler TAKE 2 PUFFS BY MOUTH EVERY 4 TO 6 HOURS NEEDED active Not Available Not Available No t Available timolol maleate 0.5 % eye drops INSTILL 1 DROP INTO BOTH EYES TWICE A DAY 07/30 completed Not Available Not Available Not Available losartan 100 mg tablet TAKE 1 TABLET BY MOUTH EVERY DAY 10/08 completed Not Available Not Available Not Available dorzolamid e 2 % eye drops INSTILL ONE DROP TWICE DAILY INTO BOTH EYES 01/16 completed Not Available Not Available Not Available Low Dose Aspirin 81 mg tablet,del ayed release Take 1 tablet every day by oral route. active Not Available Not Available No t Available azithromyc in 500 mg tablet TAKE 1 TABLET BY MOUTH EVERY DAY FOR 3 DAYS 07/05 completed Not Available Not Available Not Available potassium chloride ER 10 mEq tablet,ext ended release(pa rt/cryst) TAKE 1 TABLET BY MOUTH EVERY DAY active Not Available Not Available No t Available tadalafil 20 mg tablet Take 1 tablet every day by oral route as needed for 30 days. 2024 active Not Available Not Available Not Avai lable BD Ultra-Fine Mini Pen Needle 31 gauge x 3/16 USE ONCE DAILY NEEDED FOR INJECTIO N active Not Available Not Available No t Available sildenafil (pulmonary hypertensi on) 20 mg tablet TAKE 2-5 TABLETS BY MOUTH 1 HOUR PRIOR TO SEXUAL ACTIVITY . active Not Available Not Available No t Available Levemir FlexPen 100 unit/mL (3 mL) solution subcutaneo us insulin pen INJECT 52 UNITS DAILY 10/08 completed Not Available Not Available Not Available Januvia 100 mg tablet TAKE 1 TABLET BY MOUTH EVERY DAY 12/09 completed Not Available Not Available Not Available Lantus Solostar U-100 Insulin 100 unit/mL (3 mL) subcutaneo us pen INJECT 52 UNITS EVERY DAY BY SUBCUTAN EOUS ROUTE. active Not Available Not Available No t Available Eliquis 5 mg tablet TAKE 1 TABLET BY MOUTH TWICE A DAY active Not Available Not Available No t Available Jardiance 25 mg tablet TAKE 1 TABLET BY MOUTH EVERY DAY active Not Available Not Available No t Available Entresto 49 mg-51 mg tablet TAKE 1 TABLET BY MOUTH TWICE A DAY active Not Available Not Available No t Available naloxone 4 mg/actuati on nasal spray PLEASE SEE ATTACHED FOR DETAILED DIRECTIO NS 09/05 completed Not Available Not Available Not Available OneTouch Ultra Blue Test Strip 01/16 completed Not Available Not Available Not Available Fluad 65yr up(PF)45 mcg(15 mcgx3)/0.5 mL intramuscu lar syringe 06/12 completed Not Available Not Available Not Available OneTouch Ultra2 Meter USE DAILY DIRECTED FOR MONITORI NG OF BLOOD SUGAR FOR DIABETES active Not Available Not Available No t Available OneTouch Delica Plus Lancet 33 gauge 1 EACH BY OTHER ROUTE DAILY USE TO MONITOR BLOOD SUGAR TWICE DAILY. E11.65 active Not Available Not Available No t Available OneTouch Delica Plus Lancet 30 gauge active Not Available Not Available Not Available albuterol sulf 90 mcg/actuat ion breath activated powder inhaler,se nsor Inhale 2 puffs every 4 hours by inhalati on route. 01/03 completed Not Available Not Available Not Available Tiadylt ER 300 mg capsule,ex tended release TAKE 1 CAPSULE BY MOUTH EVERY DAY 06/12 completed Not Available Not Available Not Available Ozempic 0.25 mg or 0.5 mg (2 mg/3 mL) subcutaneo us pen injector INJECT 0.5 MG UNDER THE SKIN ONCE A WEEK active Not Available Not Available No t Available Vitals Date Recorded Body height Body mass index (BMI) Body weight Oxygen saturation Oxygen saturation in Arterial blood by Pulse oximetry Heart rate Respiratory rate Systolic blood pressure Diastolic blood pressure Provider Name and Address Organization Details Last Updated DateTime 5 190.5 cm 29.9 kg/m2 288711. 58 g 97 % 97 % 75 /min 16 /min 128 mm[Hg] 84 mm[Hg] Hailey Lou MA [facility] 5 16:03:37 Date Recorded Body height Body mass index (BMI) Body weight Oxygen saturation Oxygen saturation in Arterial blood by Pulse oximetry Heart rate Systolic blood pressure Diastolic blood pressure Provider Name and Address Organization Details Last Updated DateTime 5 190.5 cm 28.5 kg/m2 934718. 06 g 97 % 97 % 70 /min 90 mm[Hg] 62 mm[Hg] Lilli Coleman MA [facility] 5 11:02:16 Date Recorded Body height Body mass index (BMI) Body weight Oxygen saturation Oxygen saturation in Arterial blood by Pulse oximetry Heart rate Respiratory rate Systolic blood pressure Diastolic blood pressure Provider Name and Address Organization Details Last Updated DateTime 5 190.5 cm 27.2 kg/m2 90817.1 4 g 96 % 96 % 77 /min 16 /min 110 mm[Hg] 60 mm[Hg] Hailey Lou MA [facility] 5 11:01:07 Date Recorded Body height Body mass index (BMI) Body weight Oxygen saturation Oxygen saturation in Arterial blood by Pulse oximetry Heart rate Respiratory rate Systolic blood pressure Diastolic blood pressure Provider Name and Address Organization Details Last Updated DateTime 5 190.5 cm 27.5 kg/m2 73441.3 2 g 96 % 96 % 55 /min 16 /min 118 mm[Hg] 68 mm[Hg] Hailey Lou MA [facility] 5 14:55:56 Date Recorded Body height Body mass index (BMI) Body weight Oxygen saturation Oxygen saturation in Arterial blood by Pulse oximetry Heart rate Systolic blood pressure Diastolic blood pressure Provider Name and Address Organization Details Last Updated DateTime 4 190.5 cm 28.9 kg/m2 971640. 54 g 97 % 97 % 63 /min 155 mm[Hg] 75 mm[Hg] Josey Fox [place] [facility] 4 11:01:24 Social History Question Answer Notes LastModified by Organizat ion Details LastModified Time Tobacco Smoking Status Former Smoker quit 1983 MICHAEL Mayers [place] - [facility] 02/14/2020 17:00:23 What Is Your Level Of Caffeine Consumption? Heavy Information not available 07/22/2018 How Much Tobacco Do You Chew? None Information not available 07/22/2018 In The 14 Days Before Symptom Onset, Have You Had Close Contact With A Laboratory-confir med COVID-19 While That Case Was Ill? No Information not available 01/03/2021 In The 14 Days Before Symptom Onset, Have You Had Close Contact With A Person Who Is Under Investigation For COVID-19 While That Person Was Ill? No Information not available 01/03/2021 Have You Been To An Area Known To Be High Risk For COVID-19? No Information not available 01/03/2021 What Type Of Diet Are You Following? REGULAR Information not available 07/22/2018 Which Illicit Or Recreational Drugs Have You Used? None Information not available 07/22/2018 Live Alone Or With Others? With Others Information not available 02/14/2020 What Was The Date Of Your Most Recent Tobacco Screening? 12/09/2024 Information not available 12/09/2024 What Is Your Relationship Status? Information not available 01/03/2021 Do You Have Smoke And Carbon Monoxide Detectors In Your Home? Yes Information not available 01/03/2021 Are You Passively Exposed To Smoke? No Information no t available 01/03/2021 General Stress Level High [email or web address] Information not available 06/12/2020 Has Tobacco Cessation Counseling Been Provided? No Information not available 01/03/2021 On What Date Was Tobacco Cessation Counseling Provided? 12/09/2024 Information not available 12/09/2024 Sex: Male Functional Status Question Answer Note LastModified by Organizat ion Details LastModified Time Do you use any illicit or recreational drugs? No Information not available 01/03/2021 Do you or have you ever used any other forms of tobacco or nicotine? No Information not available 01/03/2021 What is your level of alcohol consumption? Occasional [email or web address] Information not available 06/02/2022 Do you or have you ever used smokeless tobacco? Never used smokeless tobacco Information not available 02/14/2020 Are you currently employed? No Information not available 02/14/2020 Are you able to care for yourself? Yes Information not available 02/14/2020 Do you or have you ever used e-cigarettes or vape? Never used electronic cigarettes Information not available 02/14/2020 Mental Status Question Answer Note LastModified by Organization D etails LastModified Time Do you feel stressed (tense, restless, nervous, or anxious, or unable to sleep at night)? [id number] Information not available 01/03/2021 Family History Relationship Description Onset Age of this Age Resolved Age Notes LastModified by Organization Details LastModified Time Mother Diabetes mellitus [email or web address] Not available 11/19 10:18:28 Mother Hypertensive disorder [email or web address] Not available 11/19 10:18:38 Mother Malignant neoplasm of ovary [email or web address] Not available 11/19 10:18:58 Medical History Condition Response Coronary Artery Disease N Other N High Blood Pressure Y Atrial Fibrillation N Kidney or Bladder Problems N Thyroid Problems N GI Problems N Depression N COPD N Blood Clots N Skin Problems N Anemia N Heart Attack ([place]) N Anxiety Disorder N Diabetes Y Muscle, Joint, or Bone Problems N Seizures/Epilepsy N Acid Reflux (GERD) Y Cancer N Stroke N Asthma N Allergies N High Cholesterol N Hepatitis N Liver Disease N Headaches N Osteoporosis N Heart Failure N Immunizations Vaccine Type Date Status Note Provider Nam e and Address Organization Details Recorded Time COVID-19 vaccine, vector-nr, [id number], PF, 0.5 mL 1 completed Not Available [facility] 06/29/2023 20:47:02 COVID-19, mRNA, LNP-S, PF, 30 mcg/0.3 mL dose 1 completed Not Available [facility] 06/29/2023 20:47:02 Influenza, adjuvanted, trivalent, PF 8 completed Not Available [facility] 06/29/2023 20:47:02 Influenza, adjuvanted, trivalent, PF 7 completed Not Available [facility] 06/29/2023 20:47:02 Respiratory syncytial virus (RSV) MAB, unspecified 3 completed Not Available [facility] 06/29/2023 20:47:02 Influenza, split virus, quadrivalent, PF 3 completed Not Available [facility] 06/29/2023 20:47:02 Influenza, adjuvanted, trivalent, PF 5 completed Not Available [facility] 12/09/2024 14:50:05 Influenza, split virus, quadrivalent, preservative 0 completed MICHAEL [place] [facility] 05/16/2020 12:38:15 Influenza, split virus, quadrivalent, preservative 2 [place] [facility] 07/22/2021 15:22:38 pneumococcal polysaccharide PPV23 2 completed MIC[place]EL [place] [facility] 07/22/2021 15:23:14 Past Encounters Encounter ID Performer Location Encounter Start Date Encounter Closed Date Diagnosis/Indication Diagnosis SNOMED-CT Code Diagnosis ICD10 Code Diagnosis Note [id number] Chris Mendez MD [facility] [address] [place] [address] 11/19/2017 09:56:05 11/19/2017 11:14:22 Epigastric pain 44829202 R10.13 Essential hypertension 66861517 I10 Benign pro static hyperplasia 976070401 N40.1 [id number] Chris Mendez MD [facility] [address] [place] [address] 11/26/2017 09:36:36 11/26/2017 11:14:58 Benign prostatic hyperplasia 439676312 N40.1 Epigastric pain 43050633 R10.13 Diabetes mellitus 011800 09 E11.9 Fuchs' cor anaid dystrophy 764607028 H18.51 Onychomycosis 052981516 B35.1 [id number] Chris Mendez MD [facility] [address] [place] [address] 12/10/2017 11:49:43 12/10/2017 12:30:00 Acute maxillary sinusitis 10858039 J01.01 [id number] Chris Mendez MD [facility] [address] [place] [address] 02/25/2018 10:26:59 02/25/2018 11:24:26 Benign prostatic hyperplasia 083287667 N40.1 Dyspnea on exertion 6084 5006 R06.09 Diabetes mellitus 284474 09 E11.9 Primary er ectile dysfunction 764900078 N52.9 [id number] [address] M[address] MD [facility] [address] [place] [address] 03/24/2018 11:24:23 03/24/2018 12:57:48 Type 2 diabetes mellitus 22700541 E11.42 Diabetic foot ulcer 3710 23897 E11.40 [id number] Hernesto Candelaria PA-C [facility] [address] [place] [address] 07/22/2018 11:48:55 07/22/2018 13:42:25 Essential hypertension 27917146 I10 Type 2 antonio betes mellitus without complication 411546403 E11.9 Unsteady gait 075401281 R26.81 [id number] Hernesto Candelaria PA-C [facility] [address] [place] [address] 07/29/2018 10:19:12 07/29/2018 11:03:18 Type 2 diabetes mellitus without complication 545290471 E11.9 [id number] Hernesto Candelaria PA-C [facility] [address] [place] [address] 08/25/2018 18:54:30 08/26/2018 08:20:26 Acute bacterial bronchitis 300985704 J20.8 [id number] Hernesto Candelaria PA-C [facility] [address] [place] [address] 01/26/2019 10:28:35 01/26/2019 11:34:02 Right upper quadrant pain 697912348 R10.11 [id number] Hernesto Candelaria PA-C [facility] [address] [place] [address] 04/05/2019 10:35:36 04/05/2019 13:47:23 Type 2 diabetes mellitus 94499108 E11.42 Foot ulcer due to type 2 diabetes mellitus 1278330089 100 E11.621 Primary er ectile dysfunction 307375748 N52.9 [id number] Hernesto Candelaria PA-C [facility] [address] [place] [address] 07/21/2019 10:45:46 07/22/2019 16:59:39 Diabetes mellitus 95503245 E11.9 Acute bron chitis with bronchospasm 02830515 J20.8 Acute bact erial bronchitis 451108674 J20.8 [id number] Hernesto Candelaria PA-C [facility] [address] [place] [address] 02/14/2020 09:50:14 02/15/2020 09:03:22 Diabetes mellitus 29536581 E11.9 Gastroesop hageal reflux disease without esophagitis 261095728 K21.9 [id number] [address] [facility] [address] [place] [address] 05/16/2020 12:21:21 05/23/2020 06:57:31 [id number] [facility] [address] [place] [address] 06/12/2020 14:49:44 06/12/2020 16:45:56 Symptomatic sinus bradycardia 345990650 R00.1 Essential hypertension 89955632 I10 [id number] Chris Mendez MD [facility] [address] [place] [address] 01/03/2021 11:01:38 01/09/2021 08:30:21 Diabetes mellitus 38172258 E11.9 Hypertensive disorder 38 121156 I10 Essential hypertension 03285388 I10 Screening for malignant neoplasm of prostate 840128578 Z12.5 [id number] [address] M[address] [facility] [address] [place] [address] 03/21/2021 15:46:12 03/22/2021 07:59:13 Hypertensive disorder 43472518 I10 Type 2 antonio betes mellitus 39574455 E11.42 Unsteady when walking 22 581992 R26.89 [id number] Hernesto Candelaria PA-C [facility] [address] [place] [address] 07/17/2021 11:03:40 07/19/2021 07:38:19 Low back pain 344085966 M54.59 Backache w ith radiating pain 257168561 M54.05 Diabetes mellitus 856569 09 E11.9 Hypertensive disorder 38 676935 I10 Body mass index 25-29 - overweight 501607123 Z68.29 Squamous c ell carcinoma of skin 685650605 C44.92 Primary er ectile dysfunction 984209485 N52.9 [id number] Hernesto Candelaria PA-C [facility] [address] [place] [address] 07/22/2021 13:56:03 07/23/2021 06:52:41 Type 2 diabetes mellitus without complication 922829407 E11.9 Adult heal th examination 717908154 Z00.00 [id number] [address] M[address] MD [facility] [address] [place] [address] 01/07/2022 10:51:08 01/07/2022 11:53:26 Body mass index 25-29 - overweight 327316350 Z68.29 Cervical radiculopathy 75394270 M54.12 Primary er ectile dysfunction 591884055 N52.9 Pre-surger y evaluation 361141202 Z01.780 [id number] Hernesto Canedlaria PA-C [facility] [address] [place] [address] 06/02/2022 10:46:25 06/02/2022 11:55:29 Acute maxillary sinusitis 08382889 J01.01 Essential hypertension 46346461 I10 [id number] Hernesto Candelaria PA-C [facility] [address] [place] [address] 11/20/2022 14:57:54 11/24/2022 14:06:56 Exanthem due to herpes zoster 737625015 B08.8 Benign pro static hyperplasia 401477767 N40.1 Benign pro static hyperplasia with outflow obstruction 939990085 N40.1 Overweight 585443264 E66 .3 [id number] [address] M[address] MD [facility] [address] [place] [address] 01/16/2023 11:04:31 01/19/2023 10:04:02 Type 2 diabetes mellitus without complication 145418569 E11.9 [id number] Hernesto Candelaria PA-C [facility] [address] [place] [address] 05/12/2023 15:14:37 05/13/2023 09:24:11 Acute bronchitis with bronchospasm 52109823 J20.8 Overweight 181677521 E66 .3 Erectile dysfunction 860 766102 F52.21 Cough 27946786 R05.9 [id number] Hernesto Candelaria PA-C [facility] [address] [place] [address] 07/30/2023 15:12:22 08/03/2023 16:01:33 Type 2 diabetes mellitus without complication 916380947 E11.9 Type 2 antonio betes mellitus 30900465 E11.42 Hypertensive disorder 38 859979 I10 [id number] Hernesto Candelaria PA-C [facility] [address] [place] [address] 08/24/2023 10:55:17 08/25/2023 10:39:07 Dyspnea on exertion 40564830 R06.09 Cervical radiculopathy 72696696 M54.12 Overweight 958947675 E66 .3 Erectile dysfunction 860 294622 F52.21 [id number] Hernesto Candelaria PA-C [facility] [address] [place] [address] 10/09/2023 15:25:09 10/13/2023 09:55:22 Type 2 diabetes mellitus without complication 630168296 E11.9 decrease metformin to 500 bid...stop glimepride Coronary arteriosclerosis 47936003 I25.10 Overweight 094686452 E66 .3 [id number] [address] M[address] MD [facility] [address] [place] [address] 11/30/2023 10:10:17 12/08/2023 12:41:17 Type 2 diabetes mellitus without complication 495979549 E11.9 decrease metformin to 500 bid...stop glimepride ..camerone d dietary manipulati on vs carbs Atrial fibrillation 4943 6004 I48.19 Overweight 496710990 E66 .3 Coronary arteriosclerosis 13423938 I25.10 [id number] [address] M[address] [facility] [address] [place] [address] 12/22/2023 11:14:07 12/23/2023 09:49:24 Seasonal allergic rhinitis 519778365 J30.2 Productive cough-yellow sputum 005987246 R09.3 Coronary arteriosclerosis 94496928 I25.10 Overweight 541237973 E66 .3 Type 2 antonio betes mellitus without complication 426410025 E11.9 decrease metformin to 500 bid...stop glimepride ..discusse d dietary manipulati on vs carbs [id number] Chris Mendez MD [facility] [address] [place] [address] 05/24/2024 15:39:56 05/25/2024 10:20:55 Cough 49738021 R05.9 Acute bron chitis with bronchospasm 25596785 J20.8 [id number] [address] M[address] [facility] [address] [place] [address] 07/05/2024 10:55:53 07/11/2024 08:10:29 Type 2 diabetes mellitus without complication 418521082 E11.9 decrease metformin to 500 bid...stop glimepride ..discusse d dietary manipulati on vs carbs Overweight 738239942 E66 .3 Acute bron chitis with bronchospasm 79234094 J20.8 Acute maxi llary sinusitis 68615372 J01.01 [id number] [facility] [address] [place] [address] 09/05/2024 15:49:01 09/06/2024 14:52:25 Uncontrolled type 2 diabetes mellitus 050871802 E11.65 History of transient ischemic attack 359211801 Z86.73 Overweight 953357195 E66 .3 [id number] [facility] [address] [place] [address] 09/19/2024 10:47:18 09/20/2024 15:58:34 History of transient ischemic attack 805873277 Z86.73 Type 2 antonio betes mellitus without complication 299611823 E11.9 decrease metformin to 500 bid...stop glimepride ..camerone blessing dietary manipulati on vs carbs Coronary arteriosclerosis 40227797 I25.10 Overweight 654516740 E66 .3 Erectile dysfunction 860 393258 F52.21 [id number] [address] M[address] MD [facility] [address] [place] [address] 11/24/2024 10:53:31 11/29/2024 12:33:13 Strain of calf muscle 549831382 S86.812A Pain in le ft lower limb 863241366 M79.605 Overweight in adulthood with body mass index of 25 or more but less than 30 671222408 Z68.27 [id number] [address] M[address] MD [facility] [address] [place] [address] 12/09/2024 14:49:19 12/12/2024 16:09:33 Strain of calf muscle 703769518 S86.812A Health Concerns Section Related Observation LastModified by Organization Detai ls LastModified Time None Recorded Concern Status LastModified by Organization Details LastModified Time None Recorded Advance Directives Directive None Recorded Payers Encounter Date Sequence Insurance Name Policy Number Policy Lee Covered Member ID Lee Member ID Guarantor Name 07/05/2024 1 [employer] - [employer]IME (MEDICARE REPLACEMENT/ ADVANTAGE - HMO) [id number] Valentino D Abraham [id number] Valentino Abraham 09/05/2024 1 [employer] - [employer]IME (MEDICARE REPLACEMENT/ ADVANTAGE - HMO) [id number] Valentino D Abraham [id number] Valentino Abraham 09/19/2024 1 [employer] - PRIME (MEDICARE REPLACEMENT/ ADVANTAGE - HMO) [id number] Valentino D Abraham [id number] Valentino Abraham 11/24/2024 1 [employer] - PRIME (MEDICARE REPLACEMENT/ ADVANTAGE - HMO) [id number] Valentino D Abraham [id number] Valentino Abraham 12/09/2024 1 [employer] - PRIME (MEDICARE REPLACEMENT/ ADVANTAGE - HMO) [id number] Valentino D Abraham [id number] Valentino Rosario Notes Date Note Type Note Provider Name and Address Organization Details Recorded Time 07/05/2024 text/html lingering cold...coughing up phlegm... present for a month now...cough meds dont help...mucinex dm helps a little... Hernesto Candelaria PA-C Attn: Accounting, [address] [facility], [place], [address], [place] [facility] 07/05/2024 11:21:29 09/05/2024 text/html had a cva last week.. they tested his a1c as 8.9 from 8.0..... Hernesto Candelaria PA-C Attn: Accounting, [address] [facility], [place], [address], [place] [facility] 09/05/2024 16:31:05 09/19/2024 text/html needs labs.. seeing endo vs diabetes..cardiolo gy is checking carotids..he also wants bloodwork and wants to see LDL below 70.. patient reports he went bowling and had some success vs his stability...sees neuro on the .. Hernesto Candelaria PA-C Attn: Accounting, [address] [facility], [place], [address], [place] [facility] 09/19/2024 11:24:03 11/24/2024 text/html was bowling thursday at about 10 and left leg had spontaneous sharp pain no weight bearing has continued since..has a pacemaker also so MRI is difficult.. Hernesto Candelaria PA-C Attn: Accounting, [address] [facility], [place], [address], [place] [facility] 11/24/2024 11:20:11 12/09/2024 text/html calf remains tender after 1 month ago when he was bowling was approaching and felt spontaneous pain in left calf...has a hx of pacemaker placement Hernesto Candelaria PA-C Attn: Accounting, [address] [facility], [place], [address], [place] [facility] 12/09/2024 15:16:07
--- OUTSIDE RECORDS SUMMARY | 2024-12-19 09:07 | XMS_ITS | Encounter Summary ---
Author Organization [facility] Healthcare Address [address] [place] [address] Care Team Providers Care Metal Flooring Installer Name Role Phone Chris Mendez MD Primary Care Provider [phone] Elias Hendricks DPM Unavailable [phone] Saúl Dodson PT Unavailable Unavailable Encounter Details Date Type Department Care Team (Late st Contact Info) Description 03/27/2020 Telephone [facility] [address] [place] [address] Richar Kent, [place] Social History Tobacco Use Types Packs/Day Years Used Date Smoking Tobacco: Former Smokeless Tobacco: Never Alcohol Use Standard Drinks/Week Comments Yes 0 (1 standard drink = 0.6 oz pur e alcohol) occasionally PHQ-2 Answer Date Recorded PHQ-2 Score 0 03/27/2019 Sex and Gender Information Value Date Recorded Sex Assigned at Not on file Legal Sex Male 11:58 PM [employer] Gender Identity Not on file Sexual Orientation Not on file documented as of this encounter Plan of Treatment Not on file documented as of this encounter Visit Diagnoses Not on filedocumented in this encounter Care Teams Metal Flooring Installer Relationship Specialty Start Date End Date Chris Mendez MD PCP - General 03/27/19 Elias Hendricks DPM [address] [place] [address] Consulting Physician Orthotics 11/16/20 Saúl Dodson, PT Physical Therapist Physical Therapy 02/25/22 documented as of this encounter
--- OUTSIDE RECORDS SUMMARY | 2024-12-19 09:07 | XMS_ITS | Encounter Summary ---
Author Organization [facility] Healthcare Address [address] [place] [address] Care Team Providers Care Client Analyst Name Role Phone Chris Mendez MD Primary Care Provider [phone] Elias Hendricks DPM Unavailable [phone] Saúl Dodson PT Unavailable Unavailable Encounter Details Date Type Department Care Team (Late st Contact Info) Description 10/01/2021 Telephone [facility] Radiology [address] [place] [address] Jeremiah Parker MD [address] [place] [address] [place] [address] Social History Tobacco Use Types Packs/Day Years Used Date Smoking Tobacco: Former Cigarettes Q uit: 1983 Smokeless Tobacco: Never Alcohol Use Standard Drinks/Week Comments Yes 0 (1 standard drink = 0.6 oz pur e alcohol) occasionally AUDIT-C Answer Date Recorded Q1: How often do you have a drink containing alc ohol? Monthly or less 11/14/2020 Q2: How many drinks containi ng alcohol do you have on a typical day when you are drinking? 1 or 2 11/14/2020 Q3: How often do you have si x or more drinks on one occasion? 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
--- OUTSIDE RECORDS SUMMARY | 2024-12-19 09:07 | XMS_ITS | Clinical Summary ---
Author Organization [facility] Address [address] [place] [address] Care Team Providers Care Relief Pharmacist Name Role Phone Chris Mendez MD Primary Care Provider [phone] Elias Hendricks DPM Unavailable [phone] Saúl Dodson PT Unavailable Unavailable Allergies No known active allergies Medications metFORMIN (GLUCOPHAGE) 1,000 mg tabletIndicatio ns:hold 24 hours before surgery Take 1 tablet (1,000 mg total) by mouth 2 (two) times a day Active insulin detemir (LEVEMIR) 100 unit/mL (3 mL) pen for injection Inject 52 Units under the skin nightly Active potassium chloride ER (KLOR-CON) 10 mEq CR tablet Take 1 tablet/capsule (10 mEq total) by mouth daily Active omeprazole (PriLOSEC) 40 mg capsule Take 1 capsule (40 mg total) by mouth daily 3 019 Active timolol (TIMOPTIC) 0.5 % ophthalmic solution Administer 1 drop into both eyes 2 (two) times a day 6 019 Active dorzolamide (TRUSOPT) 2 % ophthalmic solution Administer 1 drop into both eyes 2 (two) times a day 4 019 Active fluorometholone (FML) 0.1 % ophthalmic suspension Administer 1 drop into both eyes daily 11 019 Active tamsulosin (FLOMAX) 0.4 mg extended release capsule Take 1 capsule (0.4 mg total) by mouth nightly 0 08/14/2 019 Active omega-3 fatty acids-fish oil 300-1,000 mg capsuleIndicati ons:stop 5 days before surgery Take 1 tablet by mouth daily Active ascorbic acid (VITAMIN C) 100 mg tablet Take 1 tablet (100 mg total) by mouth daily Active cyanocobalamin (Vitamin B-12) 1,000 mcg tabletIndicatio ns:Prevention of Vitamin B12 Deficiency Take 1 tablet (1,000 mcg total) by mouth daily Active albuterol HFA (PROVENTIL HFA,VENTOLIN HFA,PROAIR HFA) 90 mcg/actuation inhaler Inhale 2 puffs every 6 (six) hours as needed Active BD ULTRA-FINE MINI PEN NEEDLE 31 gauge x 3/16 needle USE ONCE DAILY NEEDED FOR INJECTION 2 Active mv,Ca,min-iron- WT-arwqnjd-ocfd 18 mg iron- 400 mcg-180 mg tabletIndicatio ns:stop 5 days before surgery Take 1 tablet by mouth daily Active gabapentin (NEURONTIN) 100 mg capsule Take 2 capsules (200 mg total) by mouth 2 (two) times a day 120 capsule 2 Active hydroCHLOROthia zide (HYDRODIURIL) 25 mg tablet Take 1 tablet (25 mg total) by mouth daily Active sildenafiL, pulm.hypertensi on, (REVATIO) 20 mg tablet Take 1 tablet (20 mg total) by mouth as needed Active nitroglycerin (NITROSTAT) 0.[address] 1 tablet (0.4 mg total) under the tongue every 5 (five) minutes as needed for chest pain Active oxyCODONE-aceta minophen (PERCOCET) 5-325 mg per tabletIndicatio ns:Pain Take 1 tablet by mouth every 4 (four) hours as needed for pain 40 tablet Active apixaban (ELIQUIS) 5 mg tabletIndicatio ns:atrial fibrillation Take 1 tablet (5 mg total) by mouth 2 (two) times a day Active cyclobenzaprine (FLEXERIL) 10 mg tablet TAKE 1 TABLET BY MOUTH THREE TIMES A DAY NEEDED FOR MUSCLE SPASMS 50 tablet Active Additional Information Patient not taking.Reported on 12/08/2024 aspirin 81 mg chewable tablet Take 1 tablet (81 mg total) by mouth daily Active metoprolol XL (TOPROL-XL) 100 mg 24 hr tablet Take 1 tablet (100 mg total) by mouth daily Active atorvastatin (LIPITOR) 40 mg tablet Take 0.5 tablets (20 mg total) by mouth daily Active sacubitriL-vals dakotah (ENTRESTO) 49-51 mg tabletIndicatio ns:chronic heart failure Take 1 tablet by mouth 2 (two) times a day Active blood-glucose meter kit Use daily as directed for monitoring of blood sugar for diabetes 1 kit 1 Active lancets misc 1 each by other route daily Use to monitor blood sugar twice daily. E11.65 100 each 3 Active blood glucose diagnostic (glucose blood) strip Check blood sugar 2x times a day or as directed 100 each 5 Active semaglutide (OZEMPIC) 0.25 mg or 0.5 mg (2 mg/3 mL) pen injector injection Inject 0.5 mg under the skin once a week 2 mL 6 Active Jardiance 25 mg tablet Take 1 tablet (25 mg total) by mouth daily 30 tablet 11 025 2025 Active glucagon (Gvoke HypoPen 1-Pack) 1 mg/0.2 mL auto-injector Inject 1 mg under the skin as needed (Hypoglycemia requiring the assistance of another) 0.2 mL 3 Active glimepiride (AMARYL) 2 mg tablet Take 1 tablet (2 mg total) by mouth nightly 2024 Discontinued(O ther) dilTIAZem XR (CARDIZEM CD,DILACOR XR) 240 mg 24 hr capsule Take 1 capsule (240 mg total) by mouth every morning 2024 Discontinued(O ther) losartan (COZAAR) 100 mg tablet Take 1 tablet (100 mg total) by mouth daily 022 2024 Discontinued(O ther) gabapentin (NEURONTIN) 100 mg capsuleIndicati ons:Neuropathic Pain Take 1 capsule (100 mg total) by mouth 2 (two) times a day 2024 Discontinued(D uplicate order) Jardiance 25 mg tablet Take 1 tablet (25 mg total) by mouth daily 025 2024 Discontinued Baqsimi 3 mg/actuation spray,non-aeros olIndications:p atient with diabetes mellitus at risk of hypoglycemia Administer 1 spray into one nostril as needed (use for severe hypoglycemia requiring the assistance of another.) E10.65 2 each 11 025 2024 Discontinued Baqsimi 3 mg/actuation spray,non-aeros olIndications:p atient with diabetes mellitus at risk of hypoglycemia Administer 1 spray into one nostril as needed (use for severe hypoglycemia requiring the assistance of another.) E10.65 2 each 11 025 2024 Discontinued(A lternate therapy) Active Problems Problem Noted Date Diagnosed Date Chronic atrial fibrillation 01/29/2022 Glaucoma 01/29/2022 Neuropathy 01/29/2022 Mild intermittent asthma without complication Benign prostatic hyperplasia without lower urinary tract symptoms 01/29/2022 Cervical spinal stenosis 12/11/2021 Overview (12/11/2021): Added automatically from request for surgery [id number] Fitting and adjustment of cardiac pacemaker 09/10 Unsteady gait 05/22/2021 Chronic anticoagulation 04/11/2021 Anemia 04/11/2021 Right sided abdominal pain 04/11/2021 Gastroesophageal reflux disease without esophagi tis 04/11/2021 Dark stools 04/11/2021 Colon cancer screening 04/11/2021 Bleeding gums 04/11/2021 History of colonoscopy with polypectomy 04/11/20 21 Lactic acidosis 06/08/2020 Lightheadedness 06/07/2020 Symptomatic bradycardia 06/07/2020 Mixed hyperlipidemia 06/07/2020 Primary open angle glaucoma (POAG) of both eyes, indeterminate stage 06/07/2020 COPD without exacerbation 06/07/2020 Elevated lactic acid level 06/07/2020 Right upper quadrant abdominal pain 03/12/2020 Assessment & Plan (05/28/2020 12:17 PM GLOBAL CEO): -No GI related findings explaining RUQ pain. This gnawing has been going on for a couple of years. It became more severe shortly after he was trying to lift something heavy a few months back and then went back to being a gnawing feeling. -He had a colonoscopy in 2017 during which this gnawing was still present and it was unremarkable. -I do not see any GI relation to this pain and suspect either musculoskeletal or more likely neuropathic type pain. No worrisome signs. -Pt advised to contact us if any red flag signs occur and these were discussed with him. Assessment & Plan (04/18/2020 2:43 PM CDT): Occurs intermittently. Pt says when the pain occurs, it is across his RLQ and often radiates into his back. The first time this occurred, he had lifted something and felt this pain intensely. He was sent to GI because he found Maalox sometimes helped the pain. No other GI symptoms associated with this pain. He said the pain is not bad enough to take anything for it, it's just a gnawing ache at times. He said he was doing well for a while and then did some physical work (lifting, digging, etc.) and the pain started to aggravate him again. I don't feel this pain is GI related. Likely musculoskeletal or neuropathic in nature. Pt is on gabapentin due to diabetic neuropathy. Will increase this to 200mg BID to see if this helps pain. I also told him to take a dose of ibuprofen next time he has the pain to see if this helps relieve it. Assessment & Plan (03/12/2020 2:48 PM CDT): Started after he was lifting something heavy onto his truck about 1-2 months ago. He felt a tear in his RLQ and shot into his back. This pain continued and is there often. It still occasionally will radiate into his back. Pt says he does notice that this improves with use of Maalox. I suspect pulled muscle, however, it is odd that Maalox seems to improve the pain. He does have a long history of GERD as well but appears to be well controlled on omeprazole. He denies N/V or issues with BM. He said only has heartburn when he eats spicy or acidic foods. Will start with CT of abdomen. If this is negative and still having issues, we may discuss doing EGD. Pt agrees to plan. Will f/u after CT done. Chronic GERD 03/12/2020 Assessment & Plan (05/28/2020 12:19 PM GLOBAL CEO): -Well controlled on omeprazole daily Assessment & Plan (04/18/2020 2:43 PM CDT): Well controlled on PPI. Assessment & Plan (03/12/2020 2:52 PM CDT): Long history of GERD that started when he was 16 or 18 years old. He has been on reflux medication since then. He was a heavy smoker from when he was around 7 or 8 years old until 1982 when he quit. He is on omeprazole daily and appears to be well controlled as long as he doesn't eat spicy or acidic foods. He had EGD many years ago (10+) with Dr. Leon that he said looked good. Continue omeprazole 40mg. Can use Maalox prn if this helps RLQ pain. BMI 28.0-28.9,adult 03/12/2020 Athscl [place] arteries of right leg w ulcer oth prt foot 05/17/2019 Type 2 diabetes mellitus wit h hyperglycemia, with long-term current use of insulin ([facility]) 11/26/2013 Overview (10/15/2016): DMII WO CMP NT ST UNCNTR Essential hypertension 11/26/2013 Overview (10/15/2016): HYPERTENSION NOS Pure hypercholesterolemia 11/26/2013 Overview (10/17/2016): PURE HYPERCHOLESTEROLEM Cellulitis and abscess of toe of right foot Intermittent constipation Assessment & Plan (05/28/2020 12:17 PM GLOBAL CEO): -Use fiber gummies daily. Encounters Date Type Department Care Team Description 12/12/2024 Orders Only [facility] at [address] [address] Jose J Rubin DO 12/08/2024 10:30 AM CDT Office Visit [facility]ocrine [facility] at [address] [place] [address] Jose J Rubin DO Type 2 diabetes mellitus with other specified complication, with long-term current use of insulin (HCC) (Primary Dx); Hyperlipidemia associated with type 2 diabetes mellitus (HCC) 11/24/2024 11:03 AM CDT - 11/24/2024 11:59 PM CDT Hospital Encounter [facility] [address] [place] [address] Pain in left leg Discharge Disposition: Discharge to home or self care 11/01/2024 Telephone [facility] at [address] [place] [address] Jose J Rubin DO Med Refill 10/19/2024 Telephone [facility] at [address] [place] [address] Jose J Rubin DO 10/03/2024 10:30 AM CDT - 10/03/2024 11:59 PM CDT Hospital Encounter [facility] Nutrition and Diabetic Education 1 [facility] [address] [place] [address] Margot Moreno, RN Type 2 diabetes mellitus with hyperglycemia, unspecified whether usp insulin use (HCC) Discharge Disposition: Discharge to home or self care from Last 3 Months Immunizations Immunization Administration Dates Next Due Influenza, Quadrivalent, Split, Intramuscular ,05/16/2020 Influenza, Trivalent, Adjuvanted, Intramuscular 04/13/2018,04/28/2017 Teramind (J&J) SARS-CoV-2 Vaccination 10/18/2020 Pfizer SARS-CoV-2 Monovalent Vaccination (12+ Yrs) PURPLE 06/19/2021 Pneumococcal Polysaccharide PPV23 07/22/2021 Surgical History Surgery Date Site/Laterality Comments CHOLECYSTECTOMY REPAIR ANKLE LIGAMENT Right EYE SURGERY Bilateral Cornea Transplant INSERT / REPLACE / REMOVE PACEMAKER COLONOSCOPY 03/13/2011 - 04/11/2011 BUNIONECTOMY Right TOE SURGERY Right 2nd toe, bone removed Medical History Medical History Date Comments Type 2 diabetes mellitus (HCC) D iabetes type 2 Hyperlipidemia Hyperlipidemia Hypertension Hypertension Myocardial infarction (HCC) GERD (gastroesophageal reflux disease) Neuropathy Colon polyp Balance problems 2021 Pure hypercholesterolemia Symptomatic bradycardia Chronic anticoagulation Primary open angle glaucoma (POAG) of both eyes, indeterminate stage Anemia Cervical spinal stenosis COPD (chronic obstructive pulmonary disease) (HC C) Atrial fibrillation (HCC) Family History Medical History Relation Name Comments Cancer Father lung Cancer Mother female cancer Diabetes Mother Heart disease Mother Diabetes type II Other 1 Family hist ory of Diabetes -Type 2; Hypertension Other 2 Family history of Hypertension; Relation Name Status Comments Father Mother Other 1 Other 2 Social History Tobacco Use Types Packs/Day Years Used Date Smoking Tobacco: Former Cigarettes Q uit: 1982 Smokeless Tobacco: Never Tobacco Cessation:Counseling Given: Not Answered Alcohol Use Standard Drinks/Week Comments Yes 0 (1 standard drink = 0.6 oz pur e alcohol) occasionally Social Connection and Isolat ion Panel [NHANES] Answer Date Recorded In a typical week, how many times do you talk on the phone with family, friends, or neighbors? More than three times a week 01/29/2022 How often do you get togethe r with friends or relatives? Three times a week 01/29/2022 How often do you attend [facility] ch or muslim services? More than 4 times per year 01/29/2022 Active Member of Clubs or Organizations Not on f ile 01/29/2022 Attends Club or Organization Meetings Not on larisa e 01/29/2022 Are you , , di vorced, , never , or living with a partner? 01/29/2022 AUDIT-C Answer Date Recorded Q1: How often do you have a drink containing alc ohol? Monthly or less 11/14/2020 Q2: How many drinks containi ng alcohol do you have on a typical day when you are drinking? 1 or 2 11/14/2020 Q3: How often do you have si x or more drinks on one occasion? Monthly 11/14/2020 Overall Financial Resource Strain (CARDIA) Answe r Date Recorded How hard is it for you to pa y for the very basics like food, housing, medical care, and heating? Not very hard 01/29/2022 PHQ-2 Answer Date Recorded PHQ-2 Score 0 03/27/2019 Hunger Vital Sign Answer Date Recorded Within the past 12 months, y ou worried that your food would run out before you got the money to buy more. Never true 01/30/20 22 Within the past 12 months, t he food you bought just didn't last and you didn't have money to get more. Never true 01/29/2022 PRAPARE - Transportation Answer Date Re corded In the past 12 months, has l ack of transportation kept you from medical appointments or from getting medications? No 01/11 In the past 12 months, has l ack of transportation kept you from meetings, work, or from getting things needed for daily living? No 01/29/2022 Housing Stability Vital Sign Answer Samson e Recorded In the last 12 months, was t here a time when you were not able to pay the mortgage or rent on time? No 01/29/2022 Number of Places Lived in the Last Year Not on f ile 01/29/2022 In the last 12 months, was t here a time when you did not have a steady place to sleep or slept in a skilled nursing (including now)? No 01/29/2022 Sex and Gender Information Value Date Recorded Sex Assigned at Not on file Legal Sex Male 11:58 PM GLOBAL CEO Gender Identity Not on file Sexual Orientation Not on file Obstetrics History Last Filed Vital Signs Vital Sign Reading Time Taken Comments Blood Pressure 128/64 12/08/2024 10:39 AM CDT Pulse 80 12/08/2024 10:39 AM CDT Temperature 36.7 C (98 F) 02/21/2022 3:00 PM CDT Respiratory Rate 18 02/21/2022 3:00 PM CDT Oxygen Saturation 98% 02/21/2022 3:00 PM CDT Inhaled Oxygen Concentration - - Weight 100 kg (220 lb 6.4 oz) 12/08/2024 10:39 A M CDT Height 190.5 cm (6' 3) 12/08/2024 10:39 AM CDT Body Mass Index 27.55 12/08/2024 10:39 AM CDT Plan of Treatment Health Maintenance Due Date Last Done Comments Dilated Eye Exam 1945 Foot Exam 1945 DTaP/Tdap/Td Vaccine (1 - Tdap) 1954 Hepatitis B Screening 1961 Zoster Vaccine (1 of 2) 1993 Well Visit 65+ 2008 Depression Screening 03/27/2020 03/27/2019 Pneumococcal vaccine 65+ (2 of 2 - PCV) 07/22/2022 07/22/2021 Fall Risk Assessment 01/29/2023 01/29/2022 Covid-19 Vaccine (3 - 2023-2 5 season) 2024 06/19/2021, 10/18/2020 Hemoglobin A1C 06/10/2025 12/08/2024, 08/14, 09/02/2024, Additional history exists Lipid Panel 09/05/2025 09/05/2024, 2 07/2024, 09/02/2024, Additional history exists eGFR 09/05/2025 09/05/2024, 08/14, 09/02/2024, Additional history exists Albumin Creatinine Ratio, Urine 09/08/2025 Influenza Vaccine Completed 09/03/2024, , 07/22/2021, Additional history exists Medical Devices Implanted Type Area Cloth Spreader Device Identifier Shelf Expiration Date Model / Serial / Lot Lead (Rv)-08/21/2020 Implanted:03/2021 by Emmanuelle Webster MD (Quantity not on file) Lead Heart Biotronik SOLIA S60 / [id number] / Lead (Ra)-08/21/2020 Implanted:03/2021 by Emmanuelle Webster MD (Quantity not on file) Lead Heart [employer]otronik SOLIA S53 / [id number] / Pacemaker-2020 Implanted:03/2021 by Emmanuelle Webster MD (Quantity not on file) Pacemaker Left: Chest Biotronik EDORA 8 MU / [id number] / Ocular Implant Bilateral: Eye Procedures Procedure Name Priority Date/Time Associated Diagnosis Comments POCT HEMOGLOBIN A1C Routine 12/08/2024 10:52 AM CDT Type 2 diabetes mellitus with other specified complication, with long-term current use of insulin (HCC) XR TIBIA FIBULA LEFT 2 VIEWS Schedule Routine, Read Routine (OP Routine) 11/24/2024 11:16 AM CDT Pain in left leg ALBUMIN CREATININE RATIO, URINE Routine 09/08/2024 11:40 AM GLOBAL CEO Type 2 diabetes mellitus with hyperglycemia, unspecified whether usp insulin use (HCC) EGFR Routine 09/02/2024 LIPID PANEL Routine 09/02/2024 from Last 3 Months or Most Recently Relevant to Health Maintenance Results * POCT hemoglobin A1c (12/08/2024 10:52 AM CDT) Hemoglobin A1C, POC 5.6 4.0 - 5.6 % Blood 12/08/2024 10:5 2 AM CDT Jose J Rubin DO POINT OF CARE TEST ORDERABL ES Final Result * XR Tibia Fibula Left 2 Views (11/24/2024 11:16 AM CDT) Anatomical Region Laterality Modality Lower Extremities, Lower Leg Left Com puted Radiography 11/30/2024 7:41 AM CDT Narrative 11/30/2024 7:42 AM CDT EXAM DESCRIPTION: XR TIBIA FIBULA LEFT 2 VIEWS REASON FOR STUDY: Pain in left leg Pain on the right lower leg since Thursday. Pt was bowling and pulled something, pain on the calf. Swollen FINDINGS: Two views left leg submitted without comparison. No acute fracture. Tibia and fibular alignment is normal. Patellofemoral predominant knee osteoarthritis with extensor mechanism enthesophyte formation noted. Arterial atherosclerosis is present. Achilles enthesophyte and plantar heel spur noted. IMPRESSION: No acute fracture. Patellofemoral predominant left knee osteoarthritis. THIS IS AN ELECTRONICALLY VERIFIED FINAL REPORT 11/30/2024 7:42 AM - Electronically signed by Jeremiah Buckley M.D. MF: [email or web address] Report ID: [id number] Reading Location: [id number] Procedure Note Jeremiah Buckley MD - 11/30/2024 EXAM DESCRIPTION: XR TIBIA FIBULA LEFT 2 VIEWS REASON FOR STUDY: Pain in left leg Pain on the right lower leg since Thursday. Pt was bowling and pulled something, pain on the calf. Swollen FINDINGS: Two views left leg submitted without comparison. No acute fracture. Tibia and fibular alignment is normal. Patellofemoral predominant knee osteoarthritis with extensor mechanism enthesophyteformation noted. Arterial atherosclerosis is present. Achilles enthesophyte and plantar heel spur noted. IMPRESSION: No acute fracture. Patellofemoral predominant left knee osteoarthritis. THIS IS AN ELECTRONICALLY VERIFIED FINAL REPORT 11/30/2024 7:42 AM - Electronically signed by Jeremiah Buckley M.D. MF: [email or web address] Report ID: [id number] Reading Location: [id number] [facility] D[facility]ONT IMG XR PROCEDURES Final Resul t * Albumin Creatinine Ratio, Urine (09/08/2024 11:40 AM GLOBAL CEO) Albumin Ur <12.0 mg/L Comment: Interpretive Data No reference range established. Current interpretive data was last revised 2018. Creatinine Ur 50.4 mg/dL [facility]EE Comment: Interpretive Data No reference range established. Current interpretive data was last revised 2018. Albumin Creatinine Ratio, Ur <24 1 - 29 mg/g MADELINE Urine 09/08/2024 11:4 0 AM GLOBAL CEO 09/08/2024 9:18 PM GLOBAL CEO us Jose J Rubin DO LAB URINE ORDERABLES Final Result MADELINE LEE [id number] Department [place] [address] * EGFR (09/02/2024) SCRIBED eGFR in >60 EXTERNAL LAB SCRIBED eGFR in NonAfrican Ukrainian >60 EXTERNAL LAB 09/02/2024 us Historical Provider HEALTH MAINTENANCE Final Result EXTERNAL LAB * Lipid panel (09/02/2024) SCRIBED Cholesterol, Total 82 0 - 200 EXTERNAL LAB SCRIBED HDL 33 > - 33 EXTERNAL LAB SCRIBED LDL 20 < - 130 EXTERNAL LAB SCRIBED Triglycerides 143 < - 150 EXTERNAL LAB Blood 09/02/2024 us Historical Provider LAB BLOOD ORDERABLES Kya l Result EXTERNAL LAB from Last 3 Months or Most Recently Relevant to Health Maintenance Insurance [facility] MDCR HMO REF [facility] MEDICARE Address: [address] [address] [facility] MEDICARE ADVANTAGE winter JAMIN GANDHI [id number] [facility] MDCR HMO [facility] MEDIC[facility] Address: [address] [address] [place] [address] winter JAMIN GANDHI [id number] [employer] MED[employer]ARE GOLD Advance Directives For more information, please contact: [phone] * Full Code (Latest Code Status on File) Date Activated Date Inactivated Comments 01/28/2022 7:51 PM 01/29/2022 8:20 PM * Full Code Date Activated Date Inactivated Comments 06/04/2021 1:24 PM 06/04/2021 7:47 PM * Full Code Date Activated Date Inactivated Comments 06/07/2020 2:00 PM 06/09/2020 7:23 PM * Full Code Date Activated Date Inactivated Comments 07/08/2019 10:11 AM 07/08/2019 2:36 PM * Full Code Date Activated Date Inactivated Comments 03/27/2019 10:28 AM 03/30/2019 9:46 PM Care Teams Relief Pharmacist Relationship Specialty Start Date End Date Chris Mendez MD PCP - General 03/27/19 Elias Hendricks DPM [address] [place] [address] Consulting Physician Orthotics 11/16/20 Saúl Dodson PT Physical Therapist Physical Therapy 02/25/22
--- OUTSIDE RECORDS SUMMARY | 2024-12-19 09:07 | XMS_ITS | Referral Summary ---
Author Organization [facility] Address [address] [place] [address] Care Team Providers Care Brisket Puller Name Role Phone Chris Mendez MD Primary Care Provider [phone] Elias Hendricks DPM Unavailable [phone] Saúl Dodson PT Unavailable Unavailable Encounters Date Type Department Care Team Description 12/12/2024 Orders Only [facility] Diabetes Endocrine Care at [address] [place] [address] [phone] Jose J Rubin DO 12/08/2024 10:30 AM CDT Office Visit [facility] Diabetes Endocrine Care at [address] [place] [address] [phone] Jose J Rubin DO Type 2 diabetes mellitus with other specified complication, with long-term current use of insulin (HCC) (Primary Dx); Hyperlipidemia associated with type 2 diabetes mellitus (HCC) 11/24/2024 11:03 AM CDT - 11/24/2024 11:59 PM CDT Hospital Encounter [facility] Imaging Center [address] [place] [address] Pain in left leg Discharge Disposition: Discharge to home or self care 11/01/2024 Telephone [facility] Diabetes Endocrine Care at [address] [place] [phone] Jose J Rubin DO Med Refill 10/19/2024 Telephone [facility] Diabetes Endocrine Care at [address] [place] [phone] Jose J Rubin DO 10/03/2024 10:30 AM CDT - 10/03/2024 11:59 PM CDT Hospital Encounter [facility] Nutrition and Diabetic Education 1 [facility] [id number] [place] [address] Margot Moreno, RN Type 2 diabetes mellitus with hyperglycemia, unspecified whether assisted insulin use (HCC) Discharge Disposition: Discharge to home or self care from Last 3 Months Allergies No known active allergies Medications metFORMIN [...] (40 mg total) by mouth daily 3 Active timolol (TIMOPTIC) 0.5 % ophthalmic solution Administer 1 drop into both eyes 2 (two) times a day 6 Active dorzolamide (TRUSOPT) 2 % ophthalmic solution Administer 1 drop into both eyes 2 (two) times a day 4 Active fluorometholone (FML) 0.1 % ophthalmic suspension Administer 1 drop into both eyes daily 11 Active tamsulosin (FLOMAX) 0.4 mg extended release capsule Take 1 capsule (0.4 mg total) by mouth nightly 0 019 Active omega-3 fatty acids-fish oil 300-1,000 [...] DAILY NEEDED FOR INJECTION 2 Active mv,Ca,min-iron- [id number] 18 mg iron- 400 mcg-180 mg tabletIndicatio [...] mg total) by mouth daily 30 tablet 2025 Active glucagon (Gvoke HypoPen 1-Pack) 1 [...] tablet (25 mg total) by mouth daily 2024 Discontinued Baqsimi 3 mg/actuation spray,non-aeros olIndications:p atient with diabetes mellitus at risk of hypoglycemia Administer 1 spray into one nostril as needed (use for severe hypoglycemia requiring the assistance of another.) E10.65 2 each 2024 Discontinued Baqsimi 3 mg/actuation spray,non-aeros olIndications:p [...] (12/11/2021): Added automatically from request for surgery [id number] Fitting and adjustment of cardiac pacemaker 09/10 [...] 03/12/2020 Assessment & Plan (05/28/2020 12:17 PM METAL POURER): -No GI related findings explaining RUQ pain. [...] 03/12/2020 Assessment & Plan (05/28/2020 12:19 PM METAL POURER): -Well controlled on omeprazole daily Assessment & [...] helps RLQ pain. BMI 28.0-28.9,adult 03/12/2020 [facility] [place] of right leg w ulcer oth prt foot 05/17/2019 Type 2 diabetes mellitus wit h hyperglycemia, with long-term current use of insulin ([facility]) 11/26/2013 Overview (10/15/2016): DMII WO CMP NT ST UNCNTR Essential hypertension 11/26/2013 Overview (10/15/2016): HYPERTENSION NOS Pure hypercholesterolemia 11/26/2013 Overview (10/17/2016): PURE HYPERCHOLESTEROLEM Cellulitis and abscess of toe of right foot Intermittent constipation Assessment & Plan (05/28/2020 12:17 PM METAL POURER): -Use fiber gummies daily. Immunizations Immunization Administration Dates Next Due Influenza, Quadrivalent, Split, Intramuscular ,05/16/2020 Influenza, Trivalent, Adjuvanted, Intramuscular 04/13/2018,04/28/2017 Samasource (J&J) SARS-CoV-2 Vaccination 10/18/2020 Pfizer SARS-CoV-2 Monovalent Vaccination (12+ Yrs) PURPLE 06/19/2021 Pneumococcal Polysaccharide PPV23 07/22/2021 Social History Tobacco Use Types Packs/Day Years [...] week 01/29/2022 How often do you attend chur or sabianist services? More than 4 times per year [...] place to sleep or slept in a retirement (including now)? No 01/29/2022 Sex and Gender Information Value Date Recorded Sex Assigned at Not on file Legal Sex Male 11:58 PM METAL POURER Gender Identity Not on file Sexual Orientation Not on file Last Filed Vital Signs [...] 12/08/2024 10:39 AM CDT Plan of Treatment Not on file Medical Devices Implanted Type Area Electronic Pagination System Operator Device Identifier Shelf Expiration Date Model / Serial / Lot Lead (Rv)-08/21/2020 Implanted:03/2021 by Emmanuelle Webster MD (Quantity not on file) Lead Heart Biotronik SOLIA S60 / [id number] / Lead (Ra)-08/21/2020 Implanted:03/2021 by Emmanuelle Webster MD (Quantity not on file) Lead Heart Biotronik SOLIA S53 / [id number] / Pacemaker-2020 Implanted:03/2021 by Emmanuelle Webster MD (Quantity not on file) Pacemaker Left: Chest Biotronik EDORA 8 MU / [id number] / Ocular Implant Bilateral: Eye Procedures Procedure [...] CREATININE RATIO, URINE Routine 09/08/2024 11:40 AM METAL POURER Type 2 diabetes mellitus with hyperglycemia, unspecified whether assisted insulin use (HCC) EGFR Routine 09/02/2024 LIPID [...] Jeremiah Buckley M.D. MF: BRENDA Report ID: [id number] Reading Location: [id number] Procedure Note Jeremiah Buckley MD - 11/30/2024 [...] Jeremiah Buckley M.D. MF: BRENDA Report ID: [id number] Reading Location: [id number] [facility] IMG XR PROCEDURES Final Resul t * Albumin Creatinine Ratio, Urine (09/08/2024 11:40 AM METAL POURER) Albumin Ur <12.0 mg/L Comment: Interpretive Data No reference range established. Current interpretive data was last revised 2018. Creatinine Ur 50.4 mg/dL [facility] Comment: Interpretive Data No reference range established. Current interpretive data was last revised 2018. Albumin Creatinine Ratio, Ur <24 1 - 29 mg/g [facility] Urine 09/08/2024 11:4 0 AM METAL POURER 09/08/2024 9:18 PM METAL POURER Jose J Rubin DO LAB URINE ORDERABLES Final Result [facility] [id number] [address] Department of Laboratories [place], [place] [id number] * EGFR (09/02/2024) SCRIBED eGFR in >60 EXTERNAL LAB SCRIBED eGFR in NonAfrican [place] >60 EXTERNAL LAB 09/02/2024 us Historical Provider HEALTH MAINTENANCE Final Result EXTERNAL LAB * Lipid panel (09/02/2024) SCRIBED Cholesterol, Total 82 0 - 200 EXTERNAL LAB SCRIBED HDL 33 > - 33 EXTERNAL LAB SCRIBED LDL 20 < - 130 EXTERNAL LAB SCRIBED Triglycerides 143 < - 150 EXTERNAL LAB Blood 09/02/2024 Historical Provider LAB BLOOD ORDERABLES Kya l Result EXTERNAL LAB from Last 3 Months or Most Recently Relevant to Health Maintenance Insurance [facility] HMO REF [facility] Address[address] [address] [place] [address] [facility] MEDICARE ADVANTAGE Member Subscriber Plan / Payer (Ef fective 2022-Present) Name:Valentino Rosario Relation to Subscriber:Self Name:Valentino Rosario Payer ID:[id number] ([facility]) Type:[facility] MEDIC[facility] Address: [address] [address] [place] [address] [place] [address] [facility] MDCR HMO REF Member Subscriber Plan / Payer (Ef fective 2018-Present) Name:Valentino Rosario Antonia Relation to Subscriber:Self Name:Valentino Rosario Payer ID:[id number] ([facility]) Type:[facility] MEDIC[facility] Address: [address] [address] [place] [address] [place] [address] [employer] MED[employer] GOLD Member Subscriber Plan / Payer (Ef fective 2024-Present) Name:Valentino Rosario Relation to Subscriber:Self Name:Valentino Rosario Payer ID:[id number] ([facility]) Type:[employer] MEDICARE Address: [address] [place] [address] Advance Directives For more information, please contact: [phone] * Full Code (Latest Code Status on [...] 10:28 AM 03/30/2019 9:46 PM Care Teams Brisket Puller Relationship Specialty Start Date End Date Chris Mendez MD PCP - General 03/27/19 Elias Hendricks DPM [address] [place] [address] Consulting Physician Orthotics 11/16/20 Saúl Dodson PT Physical Therapist Physical Therapy 02/25/22
== END 2024-12-19 08:40 | disposition home or self-care (01) ==
LOC: CHSIMG 08:44
PROVIDERS: PCP Physician Assistant; Visit Provider Physician Assistant
DX: S86.812A Strain of other muscle(s) and tendon(s) at lower leg level, left leg, initial encounter (principal); S80.12XA Contusion of left lower leg, initial encounter
CPT/HCPCS: 73700